=== PATIENT | male | born 1985 | race Caucasian/White ===

== ENCOUNTER 2017-11-26 21:47 | Emergency (ER) | payer MEDICAID ==
[2017-11-26 22:34] VITALS: BP 122/73
[2017-11-26] MEDS ORDERED: LIDOCAINE 5% (700 MG) TRANSDERMAL ADH..PATCH TP ONE (22:55)
[2017-11-26] MEDS ORDERED: KETOROLAC TROMETHAMINE INJ/PF 30 MG/1 ML SDV IM ONE (22:55)
[2017-11-26] MEDS ORDERED: DEXAMETHASONE SOD PHOS INJ 10 MG/1 ML VIAL IM ONE (22:55)
--- NOTE | 2017-11-26 23:00 | ER Document Report ---
HPI - HPI Pain Level: 4 Notes: Patient is a 32-year-old male with history aside from chronic back pain who presents to the ED complaining of ongoing bilateral lower back and mid back pain 3-4 years. Patient is not aware of any initial injury or trauma at that time. Patient states that the pain is primarily to his lower back and radiates up paraspinally towards his mid back. Patient states that truncal movements make his pain worse and laying down improves his pain. Patient states that he has had this pain since then, but has not been in to see any providers. He has never had any imaging done his back. Patient states that he has not had any surgeries or procedures to his back. He denies any IV drug use. He does admit to smoking. He is still eating and drinking without difficulties. He is urinating normally and having normal bowel movements. He has not had any recent illness. Denies any drug allergies. Denies any headache, fever, neck pain, URI, sore throat, chest pain, palpitations, syncope, cough, shortness of breath, wheeze, dyspnea, abdominal pain, nausea/vomiting/diarrhea, urinary retention, dysuria, hematuria, loss of control of bowel or bladder, numbness/ tingling, saddle anesthesia, muscle paralysis/weakness, or rash. - ROS Systems Reviewed and Negative: Yes All other systems reviewed and negative - CONSTITUTIONAL Constitutional: DENIES: Fever, Chills - EENT EENT: DENIES: Sore Throat, Ear Pain, Eye problems - NEURO Neurology: DENIES: Headache, Weakness, Vision blurred, Dizzinesss / Vertigo - CARDIOVASCULAR Cardiovascular: DENIES: Chest pain - RESPIRATORY Respiratory: DENIES: Trouble Breathing, Coughing - GASTROINTESTINAL Gastrointestinal: DENIES: Abdominal Pain, Black / Bloody Stools - URINARY Urinary: DENIES: Dysuria - MUSCULOSKELETAL Musculoskeletal: DENIES: Extremity pain Past Medical History - Social History Smoking Status: Current Every Day Smoker Chew tobacco use (# tins/day): No Frequency of alcohol use: None Drug Abuse: None Family History: Reviewed & Not Pertinent Patient has suicidal ideation: No Patient has homicidal ideation: No Renal/ Medical History: Denies: Hx Peritoneal Dialysis Past Surgical History: Reports: Hx Orthopedic Surgery - rt knee, rt foot Vertical Provider Document - CONSTITUTIONAL Agree With Documented VS: Yes Notes: PHYSICAL EXAMINATION: GENERAL: Well-appearing, well-nourished and in no acute distress. LUNGS: Breath sounds clear to auscultation bilaterally and equal. No wheezes rales or rhonchi. HEART: Regular rate and rhythm without murmurs, rubs, gallops. ABDOMEN: Soft, nontender, nondistended abdomen. No guarding, no rebound. No masses appreciated. Normal bowel sounds present. No CVA tenderness bilaterally. No pulsatile mass Musculoskeletal: LE's b/l: FROM to passive/active. Strength 5+/5. No deficits noted. No bony tenderness of extremities. Back: FROM to passive/active. Strength 5+/5. No vertebral point tenderness, stepoffs, or deformities. No other bony tenderness, erythema, swelling, or ecchymosis. SLR negative b/l. + tenderness to the L/T-paraspinal mm b/l which correlates with the pain described. Mild spasming. No SI jt tenderness. No foot drop Extremities: No cyanosis, clubbing, or edema b/l. Peripheral pulses 2+. Capillary refill less than 2 seconds. NEUROLOGICAL: Normal speech, normal gait. Normal sensory, motor exams. Reflexes 2+ b/l. PSYCH: Normal mood, normal affect. SKIN: Warm, Dry, normal turgor, no rashes or lesions noted. - INFECTION CONTROL TRAVEL OUTSIDE OF THE [place] IN LAST 30 DAYS: No Course - Re-evaluation Re-evalutation: 11/26/17 23:40 Patient is an afebrile, well-hydrated, 32-year-old male who presents to the ED with acute on chronic lower back pain. Vitals are acceptable. PE is otherwise unremarkable. He has no significant tachycardia, tachypnea, or hypoxia. Patient is able to ambulate without difficulties. He has no other red flag symptoms with benign exam findings. Patient has never had any imaging done his back, per patient, so L-spine was ordered at this time. X-ray was unremarkable for any acute pathology. It did not incidentally of a partially calcified splenic cyst. Patient was given Decadron, Toradol, and a Lidoderm patch. I do not feel that other labs or imaging are warranted at this time based on H&P. Patient has had the symptoms overall for the last 3-4 years. Low suspicion for any meningitis, fracture, expanding/ruptured AAA, cauda equina syndrome, epidural mass lesion/abscess, herniated disc causing severe spinal stenosis, or other systemic infection at this time. Patient is aware that his condition can change from initial presentation and that he needs monitor symptoms closely for any acute changes. I will send him home with a prescription for naproxen and baclofen. Conservative measures otherwise for symptoms. Schedule an appointment with orthopedics for further evaluation and management. Consider consult with physical therapy. Recheck with your PCM in 3-5 days as well for the splenic cyst. Return to the ED with any worsening/concerning symptoms otherwise as reviewed discharge. Patient is in agreement. - Vital Signs Vital signs: Temp Pulse Resp BP Pulse Ox 98.3 F 74 122/73 98 11/26/17 22:25 11/26/17 22:25 11/26/17 22:25 11/26/17 22:25 Discharge - Discharge Clinical Impression: Splenic cyst Low back pain Qualifiers: Chronicity: acute Back pain laterality: bilateral Sciatica presence: without sciatica Qualified Code(s): M54.5 - Low back pain Condition: Stable Disposition: HOME, SELF-CARE Instructions: Low Back Pain ([facility]), Muscle Relaxers ([facility]), Stretching Exercises for the Back ([facility]) Additional Instructions: Rest, Ice, Compression, Elevation Tylenol/ibuprofen as needed Light stretches daily Strength exercises as able Moist heat and massage may help F/u with your PCP in 3-5 days for a recheck of the splenic cyst Schedule a consult(s) with Orthopedics/physical therapy for ongoing/worsening symptoms Return to the ED with any worsening symptoms and/or development of fever, headache, chest pain, palpitations, syncope, shortness of breath, trouble breathing, abdominal pain, n/v/d, blood in stool/urine, loss of control of bowel /bladder, urinary retention, muscle weakness/paralysis, saddle anesthesia, numbness/tingling, or other worsening symptoms that are concerning to you. Prescriptions: Baclofen [Baclofen 10 mg Tablet] 5 - 10 mg PO BID PRN #10 tablet PRN Reason: Naproxen 500 mg PO BID PRN #30 tablet PRN Reason: Forms: Smoking Cessation Education Referrals: [facility] [Provider Group] - Follow up in 1 week
--- NOTE | 2017-11-26 23:25 | RADIOLOGY REPORT (SQ) ---
EXAM DESCRIPTION: L SPINE WHOLE COMPLETED DATE/TIME: 11/26/2017 11:15 pm REASON FOR STUDY: low back pain COMPARISON: None. NUMBER OF VIEWS: Five views including obliques. TECHNIQUE: AP, lateral, oblique, and sacral radiographic images acquired of the lumbar spine. LIMITATIONS: None. FINDINGS: MINERALIZATION: Normal. SEGMENTATION: Normal. No transitional anatomy. ALIGNMENT: Normal. VERTEBRAE: Maintained height. No fracture or worrisome bone lesion. DISCS: Preserved height. No significant osteophytes or end plate irregularity. POSTERIOR ELEMENTS: Pedicles and facets are intact. No pars defect or posterior arch defects. HARDWARE: None in the spine. PARASPINAL SOFT TISSUES: Normal. PELVIS: Intact as visualized. No fractures or worrisome bone lesions. SI joints intact. OTHER: Rounded partially calcified lesion projecting within the left upper quadrant likely representi ng a calcified splenic cyst. IMPRESSION: NORMAL 5 VIEW LUMBAR SPINE. Incidental NOTE MADE OF PARTIALLY CALCIFIED SPLENIC CYST. TECHNICAL DOCUMENTATION: JOB ID: [id number] [employer]- All Rights Reserved Reading location - IP/workstation name: [email or web address]
== END 2017-11-26 23:46 | disposition home or self-care (01) ==
LOC: ER 21:47
DX: D73.4 Cyst of spleen (principal); G89.29 Other chronic pain; M54.5 Low back pain; M54.6 Pain in thoracic spine; F17.200 Nicotine dependence, unspecified, uncomplicated
CPT/HCPCS: 99283; 96372; 72110; J1885; J3490; J1100

== ENCOUNTER 2017-11-27 13:51 | Emergency (ER) | payer MEDICAID ==
[2017-11-27 14:06] VITALS: BP 126/77
[2017-11-27] MEDS ORDERED: METHOCARBAMOL 750 MG TABLET PO ONE (14:52)
--- NOTE | 2017-11-27 14:56 | ER Document Report ---
ED General - General Chief Complaint: Low Back Pain Stated Complaint: BACK PAIN, ARM WEAKNESS Time Seen by Provider: 11/27/17 14:39 Notes: 32-year-old male returns to the emergency department after having been seen here yesterday for low back pain and received a shot of Toradol and a shot of steroids. States that since then his back pain has not improved despite using baclofen and when he woke up this morning he felt like his bilateral upper extremities were weak and swollen. States that he dropped a gallon of milk when he woke up this morning. 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 States that he has intermittent tingling in his fingertips that has been going on for several months. States that his back pain has also been going on for months if not years, has never seen anybody for it. Did not have an inciting trauma, has not had any recent trauma either. Denies fevers, chills, numbness or tingling in his legs, bowel or bladder dysfunction, saddle anesthesia. Denies IV drug use or self cathing for urine or urinary retention. Patient also notes that since receiving the steroid shot he has been able to feel his heart pounding in his chest but denies any chest pain. TRAVEL OUTSIDE OF THE [place] IN LAST 30 DAYS: No - Related Data Allergies/Adverse Reactions: No Known Allergies Allergy (Verified 11/27/17 14:44) Past Medical History - General Information source: Patient - Social History Smoking Status: Current Every Day Smoker Chew tobacco use (# tins/day): No Frequency of alcohol use: None Drug Abuse: None, Bath salts Family History: Malignancy - Strong history of cancer in aunts. Patient has suicidal ideation: No Patient has homicidal ideation: No Renal/ Medical History: Denies: Hx Peritoneal Dialysis Past Surgical History: Reports: Hx Orthopedic Surgery - rt knee, rt foot Review of Systems - Review of Systems Constitutional: No symptoms reported. denies: Fever EENT: No symptoms reported Cardiovascular: No symptoms reported Respiratory: No symptoms reported Gastrointestinal: No symptoms reported Musculoskeletal: See HPI - Bilateral upper extremity weakness, tingling to his fingers. Back pain., Back pain Neurological/Psychological: See HPI, Weakness, Tingling. denies: Gait changes, Paralysis, Seizure -: Yes All other systems reviewed and negative Physical Exam - Vital signs Vitals: Temp Pulse Resp BP Pulse Ox 98.5 F 115 H 18 126/77 H 98 11/27/17 14:03 11/27/17 14:03 11/27/17 14:03 11/27/17 14:03 11/27/17 14:03 - Notes Notes: GENERAL: Alert, interacts well. No acute distress. HEAD: Normocephalic, atraumatic EYES: Pupils equal, round and reactive to light, extraocular movements intact. ENT: Oral mucosa moist, tongue midline. NECK: Full range of motion, supple, trachea midline. LUNGS: Clear to auscultation bilaterally, no wheezes, rales or rhonchi, no respiratory distress. HEART: Regular rate and rhythm, no murmurs, gallops, rubs. EXTREMITIES: Moves all 4 extremities spontaneously, no edema, radial and dorsalis pedis pulses 2/4 bilaterally. No cyanosis. 5 out of 5 muscle strength bilateral upper and lower extremities, unable to detect any weakness in the upper extremities. Able to fully resist flexion, extension, internal and external rotation, abduction and adduction. NEUROLOGICAL: Alert and oriented x3, normal speech, biceps and patellar DTRs 2+ bilaterally. BACK: Muscle spasm and tenderness palpation in the lower thoracic region, no midline bony tenderness to palpation, no step-offs or deformities. PSYCH: Normal mood, normal affect. SKIN: Warm, Dry, normal turgor, no rashes or lesions noted. Course - Re-evaluation Re-evalutation: 11/27/17 15:20 No evidence of cauda equina syndrome, no evidence of central cord syndrome, does not have a medical history that would predispose to epidural abscess. Am more suspicious for bilateral carpal tunnel syndrome causing his bilateral upper extremity weakness that he reports but I have not been able to reproduce on exam particularly in the setting of intermittent tingling of his hands bilaterally. 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 Patient notes that he has to switch off hands while he is driving or else he will get numbness while driving the lawnmower. Patient does not have any focal weakness nothing that would suggest stroke, no decrease in sensation that is reproducible on examination, no findings to support transverse myelitis. Patient will be placed in cockup splints bilaterally, changed from baclofen to Robaxin for muscle relaxer and asked to return to the emergency department for any new or concerning symptoms. We are checking an EKG due to his tachycardia and feelings of heart racing. I suspect this is a side effect of the steroids. - Vital Signs Vital signs: Temp Pulse Resp BP Pulse Ox 98.5 F 115 H 18 126/77 H 98 11/27/17 14:03 11/27/17 14:03 11/27/17 14:03 11/27/17 14:03 11/27/17 14:03 - EKG Interpretation by Me Additional EKG results interpreted by me: 11/27/17 15:25 EKG shows sinus rhythm rate 74, normal axis, normal intervals, no ST segment elevations or depressions, no T-wave inversions per my interpretation. Procedures - Immobilization Left Wrist Pre-Proc Neuro Vasc Exam: Normal Immobilizer type: Cock-up Performed by: Other - EMERGENCY MANAGER Post-Proc Neuro Vasc Exam: Normal, Unchanged from pre-exam Alignment checked and good: Yes Right Wrist Pre-Proc Neuro Vasc Exam: Normal Immobilizer type: Cock-up Performed by: Other - EMERGENCY MANAGER Post-Proc Neuro Vasc Exam: Normal, Unchanged from pre-exam Alignment checked and good: Yes Discharge - Discharge Clinical Impression: Upper extremity weakness Chronic thoracic back pain Qualifiers: Back pain laterality: midline Qualified Code(s): M54.6 - Pain in thoracic spine ; G89.29 - Other chronic pain; G89.29 - Other chronic pain Condition: Stable Disposition: HOME, SELF-CARE Additional Instructions: Currently I suspect that the weakness in your bilateral arms is coming from carpal tunnel syndrome. I suggest that you wear the cockup splints while mowing and at night. If the tingling and the weakness worsen please return to the emergency department or follow-up with your primary care physician. If you develop any numbness or tingling in your lower extremities, loss of control your bowels or bladders, focal weakness on one side or the other but not both please return to the emergency department immediately. You may take ibuprofen 800 mg every 8 hours as needed for pain your back, acetaminophen 1000 mg every 6 hours as needed for pain in your back and the Robaxin as directed as a muscle relaxer. Your EKG was actually completely normal. When we checked her heart rate on the EKG of 74 bpm. Prescriptions: Methocarbamol [Robaxin 750 mg Tablet] 750 mg PO ASDIR PRN #40 tablet PRN Reason: Referrals: GRACY FREEMAN MD [ACTIVE STAFF] - Follow up as needed
--- NOTE | 2017-11-27 20:36 | EKG REPORT ---
SEVERITY:- NORMAL ECG - SINUS RHYTHM : Confirmed by: Ines Burch 27-Nov-2017 17:35:23
== END 2017-11-27 15:45 | disposition home or self-care (01) ==
LOC: ER 13:51
DX: M54.6 Pain in thoracic spine (principal); G89.29 Other chronic pain; M62.830 Muscle spasm of back; R20.2 Paresthesia of skin; R00.0 Tachycardia, unspecified; F17.200 Nicotine dependence, unspecified, uncomplicated
CPT/HCPCS: 93005; 99283; 93010; L3908 ×2; J3490

== ENCOUNTER 2018-10-03 14:04 | Emergency (ER) | payer MEDICAID ==
[2018-10-03 14:09] VITALS: BP 137/99
--- NOTE | 2018-10-03 15:45 | ER Document Report ---
ED Medical Screen (RME) - General Chief Complaint: Flank Pain Stated Complaint: LEFT SIDE PAIN Time Seen by Provider: 10/03/18 15:35 Primary Care Provider: GRACY FREEMAN MD [Primary Care Provider] - Follow up as needed Mode of Arrival: Ambulatory Information source: Patient Notes: PT C/O LEFT SIDE FLANK PAIN ALL THE WAY TO UPPER BACK. DENIES INJURY, DENIES HX OF KIDNEY STONES. ALSO REPORTS HE HAS HAD SPORADIC VOMITING THAT WILL LAST ALL DAY. NO N/V/D/F TODAY, JUST FLANK AND BACK PAIN. I have greeted and performed a rapid initial assessment of this patient. A comprehensive ED assessment and evaluation of the patient, analysis of test results and completion of the medical decision making process will be conducted by additional ED providers. TRAVEL OUTSIDE OF THE [place] IN LAST 30 DAYS: No - Related Data Allergies/Adverse Reactions: No Known Allergies Allergy (Verified 10/03/18 14:07) Past Medical History Renal/ Medical History: Denies: Hx Peritoneal Dialysis Past Surgical History: Reports: Hx Orthopedic Surgery - rt knee, rt foot Physical Exam - Vital signs Vitals: Temp Pulse Resp BP Pulse Ox 97.5 F 95 18 137/99 H 98 10/03/18 14:06 10/03/18 14:06 10/03/18 14:06 10/03/18 14:06 10/03/18 14:06 Course - Vital Signs Vital signs: Temp Pulse Resp BP Pulse Ox 97.5 F 95 18 137/99 H 98 10/03/18 14:06 10/03/18 14:06 10/03/18 14:06 10/03/18 14:06 10/03/18 14:06 - Laboratory Result Diagrams: 10/03/18 17:01 10/03/18 17:01 Laboratory results interpreted by me: 10/03/18 10/03/18 15:45 17:01 Calcium 10.5 H Urine Glucose (UA) 50 H Doctor's Discharge - Discharge Referrals: GRACY FREEMAN MD [Primary Care Provider] - Follow up as needed
[2018-10-03 16:15] LABS: APPEARANCE,URINE CLEAR; BILIRUBIN,URINE NEGATIVE (NEGATIVE); COLOR,URINE YELLOW; GLUCOSE, URINE 50 mg/dL (NEGATIVE); KETONES,URINE NEGATIVE (NEGATIVE); LEUKOCYTE ESTERASE,URINE NEGATIVE (NEGATIVE); NITRITE,URINE NEGATIVE (NEGATIVE); PROTEIN,URINE NEGATIVE (NEGATIVE); URINE SPECIFIC GRAVITY 1.016; UROBILINOGEN,URINE NEGATIVE mg/dL (<2.0)
--- NOTE | 2018-10-03 16:27 | RADIOLOGY REPORT (SQ) ---
EXAM DESCRIPTION: KUB/ABDOMEN (SINGLE VIEW) COMPLETED DATE/TIME: 10/03/2018 4:21 pm REASON FOR STUDY: ABDOMIN PAIN COMPARISON: None. NUMBER OF VIEWS: One view. TECHNIQUE: Supine radiographic image of the abdomen acquired. LIMITATIONS: None. FINDINGS: BOWEL GAS PATTERN: Normal bowel gas pattern. No dilated loops. CALCIFICATIONS: 4.5 cm area in the left upper quadrant with peripheral calcification. SOFT TISSUES: No gross mass or suggestion of organomegaly. HARDWARE: None in the abdomen. BONES: No acute fracture. No worrisome bone lesions. OTHER: No other significant finding. IMPRESSION: 4.5 CM CALCIFICATION IN THE LEFT UPPER QUADRANT PROBABLY IN THE SPLEEN. NO RADIOGRAPHIC EVIDENCE FOR ACUTE ABDOMINAL DISEASE. TECHNICAL DOCUMENTATION: JOB ID: [id number] [employer]- All Rights Reserved Reading location - IP/workstation name: [email or web address]
--- NOTE | 2018-10-03 16:28 | RADIOLOGY REPORT (SQ) ---
EXAM DESCRIPTION: RIBS LEFT W/PA CHEST COMPLETED DATE/TIME: 10/03/2018 4:21 pm REASON FOR STUDY: left side flank and upper back pain COMPARISON: None. TECHNIQUE: Frontal and lateral view of the chest and additional views of the left ribs acquired. NUMBER OF VIEWS: Four view. LIMITATIONS: None. FINDINGS: FRONTAL CXR: No pneumothorax. No pleural effusion. No atelectasis or infiltrates. RIBS: No displaced rib fractures. No lytic or blastic bony lesions. OTHER: 4.5 cm peripheral calcification in the left upper quadrant of the abdomen. No other significa nt finding. IMPRESSION: NO PNEUMOTHORAX. NO DISPLACED RIB FRACTURES. 4.5 CM PERIPHERAL CALCIFICATION IN THE LEFT UPPER QUADRANT OF THE ABDOMEN, PROBABLY WITHIN THE SPLEEN . COMMENT: SITE OF TRAUMA/COMPLAINT MARKED/STAMP COMPLETED: YES. TECHNICAL DOCUMENTATION: JOB ID: [id number] [employer]- All Rights Reserved Reading location - IP/workstation name: [email or web address]
[2018-10-03 17:19] LABS: ABSOLUTE BASOPHILS # (AUTO) 0.1 10^3/uL (0.0-0.2); ABSOLUTE EOSINOPHILS # (AUTO) 0.2 10^3/uL (0.0-0.6); ABSOLUTE MONOCYTES (AUTO) 0.8 10^3/uL (0.1-1.4); ABSOLUTE NEUT (AUTO) 6.8 10^3/uL (1.7-8.2); BASOPHILS % (AUTO) 0.8 % (0-2); EOSINOPHILS % (AUTO) 2.5 % (0-6); HEMATOCRIT 46.4 % (37.9-51.0); HEMOGLOBIN 16.4 g/dL (13.5-17.0); LYMPHOCYTES % (AUTO) 20.3 % (13-45); MEAN CORPUSCULAR HEMOGLOBIN 30.6 pg (27.0-33.4); MEAN CORPUSCULAR HGB CONC 35.4 g/dL (32.0-36.0); MEAN CORPUSCULAR VOLUME 87 fl (80-97); MONOCYTES % (AUTO) 8.2 % (3-13); PLATELET COUNT 282 10^3/uL (150-450); RED BLOOD COUNT 5.37 10^6/uL (4.35-5.55); RED CELL DISTRIBUTION WIDTH 13.1 % (11.5-14.0); SEGMENTED NEUTROPHILS % (AUTO) 68.2 % (42-78); TOTAL CELLS COUNTED % (AUTO) 100 %
[2018-10-03 17:36] LABS: ALANINE AMINOTRANSFERASE 33 U/L (21-72); ALBUMIN 4.7 g/dL (3.5-5.0); ALKALINE PHOSPHATASE 78 U/L (38-126); ANION GAP 10 (5-19); ASPARTATE AMINO TRANSFERASE 22 U/L (17-59); BILIRUBIN,DIRECT 0.3 mg/dL (0.0-0.4); BILIRUBIN,TOTAL 0.6 mg/dL (0.2-1.3); BLOOD UREA NITROGEN 10 mg/dL (7-20); CALCIUM 10.5 mg/dL (8.4-10.2); CARBON DIOXIDE 28 mmol/L (22-30); CHLORIDE 102 mmol/L (98-107); GLUCOSE 94 mg/dL (75-110); SODIUM 140.2 mmol/L (137-145); TOTAL PROTEIN 7.7 g/dL (6.3-8.2)
--- NOTE | 2018-10-03 18:14 | ER Document Report ---
ED General - General Chief Complaint: Flank Pain Stated Complaint: LEFT SIDE PAIN Time Seen by Provider: 10/03/18 15:35 Primary Care Provider: GRACY FREEMAN MD [ACTIVE STAFF] - Follow up as needed CONOR BROWNING MD [ACTIVE STAFF] - Follow up as needed Mode of Arrival: Ambulatory Notes: 33-year-old male with no significant past medical history but with a known calcified splenic cyst presents to the emergency department for left flank pain. Patient states it has been steady and unbearable for the last 2 days where he cannot get comfortable. He said he has been having intermittent pain for the last 6 months. No inciting trauma that he is aware of. He states that randomly he will also get severe headaches and vomit without nausea. Unclear if this is related. No history of migraines. He denies any other abdominal pain. He denies any fevers or chills, shortness of breath or chest pain, urinary symptoms, back pain. TRAVEL OUTSIDE OF THE [place] IN LAST 30 DAYS: No - Related Data Allergies/Adverse Reactions: No Known Allergies Allergy (Verified 10/03/18 14:07) Past Medical History - General Information source: Patient - Social History Smoking Status: Unknown if Ever Smoked Family History: Malignancy - Strong history of cancer in aunts. Renal/ Medical History: Denies: Hx Peritoneal Dialysis Past Surgical History: Reports: Hx Orthopedic Surgery - rt knee, rt foot Review of Systems - Review of Systems Constitutional: See HPI EENT: No symptoms reported Cardiovascular: See HPI Respiratory: See HPI Gastrointestinal: See HPI Genitourinary: No symptoms reported Male Genitourinary: No symptoms reported Musculoskeletal: See HPI Skin: No symptoms reported Hematologic/Lymphatic: No symptoms reported Neurological/Psychological: No symptoms reported Physical Exam - Vital signs Vitals: Temp Pulse Resp BP Pulse Ox 97.5 F 95 18 137/99 H 98 10/03/18 14:06 10/03/18 14:06 10/03/18 14:06 10/03/18 14:06 10/03/18 14:06 - Notes Notes: PHYSICAL EXAMINATION: Reviewed vital signs and charting by RN GENERAL: Alert, interacts well. No acute distress. HEAD: Normocephalic, atraumatic. NECK: Full range of motion. Supple. Trachea midline. LUNGS: Clear to auscultation bilaterally, no wheezes, rales, or rhonchi. No respiratory distress. HEART: Regular rate and rhythm. No murmur ABDOMEN: soft, non-tender. Non-distended. Bowel sounds present in all 4 quadrants. no McBurney's point tenderness, no Mariano sign. EXTREMITIES: Moves all 4 extremities spontaneously. No edema, No cyanosis. BACK: Acute left-sided flank pain to light palpation and while at rest NEUROLOGICAL: Normal speech. PSYCH: Normal affect, normal mood. SKIN: Warm, dry, normal turgor. No rashes or lesions noted. Course - Re-evaluation Re-evalutation: 10/03/18 18:35 Overall well-appearing. Patient with a known most likely in his spleen. Discussed with Dr. James De Santiago and will get a CT abdomen with IV contrast. There was no blood or RBCs in urinalysis so I do not suspect a kidney stone with this known abnormality. No leukocytosis, no evidence of infectious symptoms. At this time I want to get the imaging to assess for potential for splenic infarction. 10/03/18 19:51 CT abdomen pelvis with contrast complete. No evidence of any vascular pathology with the spleen. It showed a 3 cm densely calcified splenic cyst. Discussed with Dr. De Santiago and this could potentially just represent stretching of the splenic capsule causing him his pain. I will give him a follow-up with surgery to discuss his options. At this time all his lab work and vital signs are stable he is safe and stable to discharge home. - Vital Signs Vital signs: Temp Pulse Resp BP Pulse Ox 97.5 F 95 18 137/99 H 98 10/03/18 14:06 10/03/18 14:06 10/03/18 14:06 10/03/18 14:06 10/03/18 14:06 - Laboratory Result Diagrams: 10/03/18 17:01 10/03/18 17:01 Laboratory results interpreted by me: 10/03/18 10/03/18 15:45 17:01 Calcium 10.5 H Urine Glucose (UA) 50 H Discharge - Discharge Clinical Impression: Splenic cyst Condition: Good Disposition: HOME, SELF-CARE Additional Instructions: You were seen in the emergency room this evening for left-sided pain which most likely is due to the splenic cyst that is present in your spleen. The CT with contrast did not show anything concerning for an aneurysm of your splenic artery or any concerns for severe injury that would require surgery. All your lab work looked good. At this time I am giving you a referral for surgery and you could discuss with the surgeon if this is something that can be addressed if your symptoms persist. If you develop high fevers, pass out, have severe, intractable left-sided pain that debilitate you, you bloody vomiting or bloody diarrhea please immediately return to the emergency department. Please take Motrin 600 mg every 6 hours with food or milk for pain and inflammation and/or Tylenol 1000 mg every 6 hours for pain. Referrals: GRACY FREEMAN MD [ACTIVE STAFF] - Follow up as needed CONOR BROWNING MD [ACTIVE STAFF] - Follow up as needed
[2018-10-03] MEDS ORDERED: OXYCODONE-ACETAMINOPHEN 5-325 MG TABLET PO ONE (18:49)
--- NOTE | 2018-10-03 19:42 | RADIOLOGY REPORT (SQ) ---
EXAM DESCRIPTION: CT ABD/PELVIS WITH IV ONLY COMPLETED DATE/TIME: 10/03/2018 7:29 pm REASON FOR STUDY: Acute LUQ pain COMPARISON: None. TECHNIQUE: CT scan of the abdomen and pelvis performed using helical scanning technique with dynamic intravenous contrast injection. No oral contrast. Images reviewed with lung, soft tissue, and bone windows. Reconstructed coronal and sagittal MPR images reviewed. Delayed images for evaluation of the urinary system also acquired. All images stored on PACS. All CT scanners at this facility use dose modulation, iterative reconstruction, and/or weight based d osing when appropriate to reduce radiation dose to as low as reasonably achievable (ALARA). [facility]: Dose Right [facility]: CareDose [facility]: Dose Right [facility]: Teradose 4D [facility]: [employer] CONTRAST TYPE AND DOSE: contrast/concentration: Isovue 350.00 mg/ml; Total Contrast Delivered: 100.0 ml; Total Saline Delivered: 72.0 ml RENAL FUNCTION: BUN 10 creatinine 0.8 RADIATION DOSE: CT Rad equipment meets quality standard of care and radiation dose reduction techniq ues were employed. CTDIvol: 16.7 - 19.5 mGy. DLP: 2055 mGy-cm.. LIMITATIONS: None. FINDINGS: LOWER CHEST: No significant findings. No nodules or infiltrates. LIVER: Normal size. No masses. No dilated ducts. SPLEEN: There is a 3 cm cyst with densely calcified wall. PANCREAS: No masses. No significant calcifications. No adjacent inflammation or peripancreatic fluid collections. Pancreatic duct not dilated. GALLBLADDER: Contracted. No stones. ADRENAL GLANDS: No significant masses or asymmetry. RIGHT KIDNEY AND URETER: No solid masses. No significant calcifications. No hydronephrosis or hyd roureter. LEFT KIDNEY AND URETER: No solid masses. No significant calcifications. No hydronephrosis or hydr oureter. AORTA AND VESSELS: No aneurysm. No dissection. Renal arteries, SMA, celiac without stenosis. RETROPERITONEUM: No retroperitoneal adenopathy, hemorrhage or masses. BOWEL AND PERITONEAL CAVITY: No masses or inflammatory changes. No free fluid or peritoneal masses. APPENDIX: Normal. PELVIS: No mass. No free fluid. Normal bladder. ABDOMINAL WALL: No masses. No hernias. BONES: No significant or acute findings. OTHER: No other significant finding. IMPRESSION: Calcified splenic cyst. Nonspecific. Could represent an old hemorrhagic cyst. Can be seen with parasites. No acute finding in the abdomen or pelvis. TECHNICAL DOCUMENTATION: JOB ID: [id number] Quality ID # [id number]: Final reports with documentation of one or more dose reduction techniques (e.g., Au tomated exposure control, adjustment of the mA and/or kV according to patient size, use of iterative reconstruction technique) 2010 [employer]- All Rights Reserved Reading location - IP/workstation name: [email or web address]
--- NOTE | 2018-10-03 20:23 | ER Document Report ---
Doctor's Note Notes: I personally and independently obtained patient history and examined the patient in conjunction with the APC and agree with the assessment, treatment plan and disposition of the patient as recorded by the APC, and have reviewed the APC's note. HISTORY OF PRESENT ILLNESS: Patient is a 33 year old male that presents to the emergency department for chief complaint of left flank pain. Patient's been having this pain on and off for over 6 months but it seemingly got worse over the last several days, the pain radiates up the back. Currently rates the pain as a 5 out of 10. ROS: Constitutional: Negative for fever. Cardiovascular: Negative for chest pain. Respiratory: Negative for shortness of breath. Gastrointestinal: Positive for left flank pain Musculoskeletal: Negative for arm, leg or back pain Skin: Negative for rash. Neurological: Negative for weakness or numbness. Other than noted above, the 12 point review of systems was reviewed with the patient and were negative, all pertinent findings are included in the HPI. PHYSICAL EXAMINATION: Vital signs reviewed, nursing noted reviewed. GENERAL: Well-appearing, well-nourished and in no acute distress. HEAD: Atraumatic, normocephalic. EYES: Eyes appear normal, conjunctiva are normal. ENT: nares patent, oropharynx clear without exudates. Moist mucous membranes. NECK: Normal range of motion, supple without lymphadenopathy LUNGS: Breath sounds clear to auscultation bilaterally and equal. No wheezes rales or rhonchi. HEART: Regular rate and rhythm without murmurs ABDOMEN: Soft, left CVA tenderness, normoactive bowel sounds. No rebound, guarding, or rigidity. No masses appreciated. EXTREMITIES: Nontender, good range of motion, no pitting or edema. NEUROLOGICAL: No focal neurological deficits. Moves all extremities spontaneously Motor and sensory grossly intact on exam. PSYCH: Normal mood, normal affect. SKIN: Warm, Dry, normal turgor, no rashes or lesions noted on exposed skin MEDICAL DECISION MAKING: Patient seen and examined, vital signs reviewed, on my examination the patient did have some tenderness in his right flank, review of imaging demonstrated some calcifications in the left upper quadrant, likely splenic cyst, these were seen on prior images in the past, however this may likely be related to the patient's pain, therefore CT imaging of the abdomen and pelvis was ordered with IV contrast, and redemonstrated a 3 cm well-circumscribed and calcified splenic cyst, that is likely the cause the patient's pain as it does abut the splenic capsule, while the patient follow-up with general surgery, to discuss possible options including splenectomy in the future if this continues to cause the patient pain, patient was agreeable to this and was discharged home. Please review detail APC documentation. *Note is created using voice recognition software and may contain spelling, syntax or grammatical errors. Laboratory 10/03/18 10/03/18 10/03/18 15:45 17:01 17:01 WBC 10.0 RBC 5.37 Hgb 16.4 Hct 46.4 MCV 87 MCH 30.6 MCHC 35.4 RDW 13.1 Plt Count 282 Seg Neutrophils % 68.2 Lymphocytes % 20.3 Monocytes % 8.2 Eosinophils % 2.5 Basophils % 0.8 Absolute Neutrophils 6.8 Absolute Lymphocytes 2.0 Absolute Monocytes 0.8 Absolute Eosinophils 0.2 Absolute Basophils 0.1 Sodium 140.2 Potassium 5.0 Chloride 102 Carbon Dioxide 28 Anion Gap 10 BUN 10 Creatinine 0.79 Est GFR ( Amer) > 60 Est GFR (Non-Af Amer) > 60 Glucose 94 Calcium 10.5 H Total Bilirubin 0.6 Direct Bilirubin 0.3 Neonat Total Bilirubin Not Reportable Neonat Direct Bilirubin Not Reportable Neonat Indirect Bili Not Reportable AST 22 ALT 33 Alkaline Phosphatase 78 Total Protein 7.7 Albumin 4.7 Urine Color YELLOW Urine Appearance CLEAR Urine pH 6.0 Ur Specific Condon 1.016 Urine Protein NEGATIVE Urine Glucose (UA) 50 H Urine Ketones NEGATIVE Urine Blood NEGATIVE Urine Nitrite NEGATIVE Urine Bilirubin NEGATIVE Urine Urobilinogen NEGATIVE Ur Leukocyte Esterase NEGATIVE Urine WBC (Auto) 1 Urine RBC (Auto) 1 Urine Mucus (Auto) MOD Urine Ascorbic Acid NEGATIVE KUB X-Ray 10/03/18 00:00 IMPRESSION: 4.5 CM CALCIFICATION IN THE LEFT UPPER QUADRANT PROBABLY IN THE SPLEEN. NO RADIOGRAPHIC EVIDENCE FOR ACUTE ABDOMINAL DISEASE. Ribs w/Chest X-Ray 10/03/18 15:40 IMPRESSION: NO PNEUMOTHORAX. NO DISPLACED RIB FRACTURES. 4.5 CM PERIPHERAL CALCIFICATION IN THE LEFT UPPER QUADRANT OF THE ABDOMEN, PROBABLY WITHIN THE SPLEEN. Abdomen/Pelvis CT 10/03/18 18:36 IMPRESSION: Calcified splenic cyst. Nonspecific. Could represent an old hemor rhagic cyst. Can be seen with parasites. No acute finding in the abdomen or pelvis.
== END 2018-10-03 20:28 | disposition home or self-care (01) ==
LOC: ER 14:04
DX: D73.4 Cyst of spleen (principal); R10.9 Unspecified abdominal pain; R51 Headache; R11.10 Vomiting, unspecified
CPT/HCPCS: 36415; 74018; 74177; 80053; 81001; 85025; 99284

== ENCOUNTER 2019-08-22 14:55 | Emergency (ER) | payer SELFPAY ==
[2019-08-22] MEDS ORDERED: IPRATROPIUM/ALBUTEROL 0.5-2.5 MG/3 ML AMPUL NEB ONE (15:45)
[2019-08-22] MEDS ORDERED: PREDNISONE 20 MG TABLET PO ONE (15:45)
--- NOTE | 2019-08-22 15:47 | ER Document Report ---
ED Medical Screen (RME) - General Chief Complaint: Chest Pain Stated Complaint: SHORT OF BREATH Time Seen by Provider: 08/22/19 15:41 Mode of Arrival: Ambulatory Information source: Patient Notes: Patient states that he was diagnosed with influenza and pneumonia 2 weeks ago. Patient was placed on azithromycin and finished the medicine about a week ago. Patient complains of right thoracic back pain and shortness of breath. Patient without any chest discomfort. No fever, no nausea or vomiting. Patient feels as though symptoms are worsening I have greeted and performed a rapid initial assessment of this patient. A comprehensive ED assessment and evaluation of the patient, analysis of test results and completion of the medical decision making process will be conducted by additional ED providers. TRAVEL OUTSIDE OF THE [place] IN LAST 30 DAYS: No - Related Data Allergies/Adverse Reactions: No Known Allergies Allergy (Verified 10/03/18 14:07) Past Medical History Renal/ Medical History: Denies: Hx Peritoneal Dialysis Past Surgical History: Reports: Hx Orthopedic Surgery - rt knee, rt foot Physical Exam - Vital signs Vitals: Temp Pulse Resp BP Pulse Ox 98.7 F 93 20 127/79 H 96 08/22/19 15:24 08/22/19 15:24 08/22/19 15:24 08/22/19 15:24 08/22/19 15:24 - Respiratory Respiratory status: No respiratory distress Chest status: Pain on movement, Pain with cough Breath sounds: Nonproductive cough, Wheezing - With coughing Course - Vital Signs Vital signs: Temp Pulse Resp BP Pulse Ox 98.7 F 93 20 127/79 H 96 08/22/19 15:24 08/22/19 15:24 08/22/19 15:24 08/22/19 15:24 08/22/19 15:24
--- NOTE | 2019-08-22 17:04 | RADIOLOGY REPORT (SQ) ---
EXAM DESCRIPTION: CHEST 2 VIEWS COMPLETED DATE/TIME: 08/22/2019 4:04 pm REASON FOR STUDY: cough, sob COMPARISON: None. EXAM PARAMETERS: NUMBER OF VIEWS: two views TECHNIQUE: Digital Frontal and Lateral radiographic views of the chest acquired. RADIATION DOSE: NA LIMITATIONS: none FINDINGS: LUNGS AND PLEURA: There appear to be mild bibasilar atelectatic changes. No infiltrate or effusion. No mass. MEDIASTINUM AND HILAR STRUCTURES: No masses or contour abnormalities. HEART AND VASCULAR STRUCTURES: Heart normal size. No evidence for failure. BONES: No acute findings. HARDWARE: None in the chest. OTHER: No other significant finding. IMPRESSION: NO ACUTE RADIOGRAPHIC FINDING IN THE CHEST. TECHNICAL DOCUMENTATION: JOB ID: [id number] 2010 [employer]- All Rights Reserved Reading location - IP/workstation name: [email or web address]
--- NOTE | 2019-08-22 17:25 | ER Document Report ---
ED General - General Chief Complaint: Chest Pain Stated Complaint: SHORT OF BREATH Time Seen by Provider: 08/22/19 15:41 Primary Care Provider: ZAKI MOTLEY DO [NO LOCAL MD] - Follow up as needed ROSS ABREU MD [HONORARY] - Follow up as needed Mode of Arrival: Ambulatory Information source: Patient TRAVEL OUTSIDE OF THE [place] IN LAST 30 DAYS: No - HPI Onset: Other - over the last week Onset/Duration: Gradual Quality of pain: Sharp, Other - pleuritic Severity: Moderate Pain Level: 4 Associated symptoms: Nonproductive cough Exacerbated by: Coughing, Deep breathing, Other - palpation of right lateral and right posterior chest Similar symptoms previously: No Recently seen / treated by doctor: Yes - Seen at a hospital in [place] 2 weeks ago and diagnosed w flu and Pneumonia Notes: 34 year old male with no significant PMH here for 1 week of Right Lateral and Right Posterior Chest/Thorax pain which is made worse with taking deep breaths, coughing, and palpation of the area. 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 Patient said he had a Flu swab and a CTA of his chest then. The patient finished a course of Azithromycin last week and since finishing the Azithromycin he has since developed the right sided chest/thorax pains. The patient says he had had fevers and a productive cough but those have improved since taking Azithromycin. - Related Data Allergies/Adverse Reactions: No Known Allergies Allergy (Verified 10/03/18 14:07) Past Medical History - General Information source: Patient - Social History Smoking Status: Current Every Day Smoker Frequency of alcohol use: None Drug Abuse: None Lives with: Spouse/Significant other Family History: Malignancy - Strong history of cancer in aunts. Patient has suicidal ideation: No Patient has homicidal ideation: No - Past Medical History Cardiac Medical History: Reports: None Pulmonary Medical History: Reports: None EENT Medical History: Reports: None Neurological Medical History: Reports: None Endocrine Medical History: Reports: None Renal/ Medical History: Reports: None. Denies: Hx Peritoneal Dialysis Malignancy Medical History: Reports None GI Medical History: Reports: None Musculoskeletal Medical History: Reports None Skin Medical History: Reports None Psychiatric Medical History: Reports: None Past Surgical History: Reports: Hx Orthopedic Surgery - rt knee, rt foot Review of Systems - Review of Systems Constitutional: No symptoms reported EENT: No symptoms reported Cardiovascular: Chest pain - right sided lateral and posterior chest pain Respiratory: Cough, Other - pleuritic chest pain Gastrointestinal: No symptoms reported Genitourinary: No symptoms reported Male Genitourinary: No symptoms reported Musculoskeletal: No symptoms reported Skin: No symptoms reported Hematologic/Lymphatic: No symptoms reported Neurological/Psychological: No symptoms reported -: Yes All other systems reviewed and negative Physical Exam - Vital signs Vitals: Temp Pulse Resp BP Pulse Ox 98.7 F 93 20 127/79 H 96 08/22/19 15:24 08/22/19 15:24 08/22/19 15:24 08/22/19 15:24 08/22/19 15:24 - Notes Notes: GENERAL: Well-appearing, well-nourished and in no acute distress. HEAD: Atraumatic, normocephalic. EYES: Pupils equal round and reactive to light, extraocular movements intact, sclera anicteric, conjunctiva are normal. ENT: TMs normal, nares patent, oropharynx clear without exudates. Moist mucous membranes. NECK: Normal range of motion, supple without lymphadenopathy or JVD. LUNGS: Breath sounds clear to auscultation bilaterally and equal. No wheezes rales or rhonchi. HEART: Regular rate and rhythm without murmurs, rubs or gallops. CHEST: Tender over right lateral and right posterior chest wall on palpation with no crepitus ABDOMEN: Soft, nontender, normoactive bowel sounds. No guarding, no rebound. No masses appreciated. EXTREMITIES: Normal range of motion, no pitting or edema. No clubbing or cyanosis. NEUROLOGICAL: Cranial nerves II through XII grossly intact. Normal speech, normal gait. PSYCH: Normal mood, normal affect. SKIN: Warm, Dry, normal turgor, no rashes or lesions noted. Course - Re-evaluation Re-evalutation: 08/22/19 20:26 The patient has a consolidation in his right lower lung seen on CTA chest but not on Xray. Patient has no PE on CTA Chest. Patient has finished a course of Azithromycin already. Patient has normal vital signs, a normal WBC count, and he is walking around tolerating POs without a problem. Patient either has a resistant community acquired pneumonia or he is has continued inflammatory changes since his last infection (bacterial vs viral as he apparently tested positve for the flu 2 weeks ago). Since patient is having pain in the area of consolidation and a continued cough, will treat with a course of Levaquin but have him follow up with a PCP locally to ensure resolution of his symptoms and consolidation. - Vital Signs Vital signs: Temp Pulse Resp BP Pulse Ox 97.6 F 90 16 122/78 95 08/22/19 20:45 08/22/19 20:45 08/22/19 20:45 08/22/19 20:45 08/22/19 20:45 - Laboratory Result Diagrams: 08/22/19 17:35 08/22/19 17:35 - Diagnostic Test Radiology reviewed: Image reviewed, Reports reviewed - EKG Interpretation by Tx EKG shows normal: Sinus rhythm, [place], Intervals, QRS Complexes Rate: Normal Rhythm: NSR Additional EKG results interpreted by me: 08/22/19 18:31 T wave inversions in III, aVF. Possible LVH Discharge - Discharge Clinical Impression: Pneumonia Qualifiers: Pneumonia type: due to unspecified organism Laterality: right Lung location: lower lobe of lung Qualified Code(s): J18.9 - Pneumonia, unspecified organism Condition: Stable Disposition: HOME, SELF-CARE Instructions: Pneumonia (OM) Additional Instructions: Take Levaquin (antibiotic) as prescribed. Use an Albuterol inhaler to help with breathing. Use the prescribed Naproxen for pain along with over the counter Tylenol. Follow up with one of the primary care doctors listed in your paperwork to ensure resolution of your symptoms. Prescriptions: Levofloxacin [Levaquin 750 mg Tablet] 750 mg PO DAILY #5 tablet Naproxen 500 mg PO Q12H PRN #20 tablet PRN Reason: Albuterol Sulfate [Proair HFA Inhalation Aerosol 8.5 gm MDI] 2 puff IH Q4H PRN #1 mdi PRN Reason: Referrals: ZAKI MOTLEY DO [NO LOCAL MD] - Follow up as needed ROSS ABREU MD [HONORARY] - Follow up as needed
[2019-08-22] MEDS ORDERED: KETOROLAC TROMETHAMINE INJ/PF 30 MG/1 ML SDV IV ONE (17:47)
[2019-08-22 18:11] LABS: ABSOLUTE BASOPHILS # (AUTO) 0.1 10^3/uL (0.0-0.2); ABSOLUTE EOSINOPHILS # (AUTO) 0.4 10^3/uL (0.0-0.6); ABSOLUTE MONOCYTES (AUTO) 0.9 10^3/uL (0.1-1.4); ABSOLUTE NEUT (AUTO) 4.7 10^3/uL (1.7-8.2); BASOPHILS % (AUTO) 0.9 % (0-2); EOSINOPHILS % (AUTO) 3.9 % (0-6); HEMATOCRIT 38.2 % (37.9-51.0); HEMOGLOBIN 13.5 g/dL (13.5-17.0); MEAN CORPUSCULAR HEMOGLOBIN 30.8 pg (27.0-33.4); MEAN CORPUSCULAR HGB CONC 35.3 g/dL (32.0-36.0); MEAN CORPUSCULAR VOLUME 87 fl (80-97); MONOCYTES % (AUTO) 10.3 % (3-13); PLATELET COUNT 388 10^3/uL (150-450); RED BLOOD COUNT 4.38 10^6/uL (4.35-5.55); SEGMENTED NEUTROPHILS % (AUTO) 51.9 % (42-78); TOTAL CELLS COUNTED % (AUTO) 100 %; WHITE BLOOD COUNT 9.1 10^3/uL (4.0-10.5)
[2019-08-22 18:24] LABS: ALBUMIN 3.9 g/dL (3.5-5.0); ALKALINE PHOSPHATASE 92 U/L (38-126); ANION GAP 9 (5-19); ASPARTATE AMINO TRANSFERASE 33 U/L (17-59); BILIRUBIN,DIRECT 0.3 mg/dL (0.0-0.4); BILIRUBIN,TOTAL 0.5 mg/dL (0.2-1.3); BLOOD UREA NITROGEN 12 mg/dL (7-20); CALCIUM 8.9 mg/dL (8.4-10.2); CARBON DIOXIDE 28 mmol/L (22-30); CHLORIDE 102 mmol/L (98-107); GLUCOSE 85 mg/dL (75-110); POTASSIUM 4.1 mmol/L (3.6-5.0); TOTAL PROTEIN 7.2 g/dL (6.3-8.2)
[2019-08-22 18:35] LABS: NT PRO BNP 52 pg/mL (<125)
[2019-08-22 18:39] LABS: TROPONIN I < 0.012 ng/mL
--- NOTE | 2019-08-22 19:29 | RADIOLOGY REPORT (SQ) ---
EXAM DESCRIPTION: CTA CHEST COMPLETED DATE/TIME: 08/22/2019 7:05 pm REASON FOR STUDY: rule out PE. right sided pleuritic chest pain, SOB COMPARISON: None. TECHNIQUE: CT scan of the chest performed using helical scanning technique with dynamic intravenous contrast injection. Images reviewed with lung, soft tissue and bone windows. Reconstructed coronal and sagittal MPR images reviewed. Additional 3 dimensional post-processing performed to develop Maximal Intensity Projection images (SC P). All images stored on PACS. All CT scanners at this facility use dose modulation, iterative reconstruction, and/or weight based d osing when appropriate to reduce radiation dose to as low as reasonably achievable (ALARA). [facility]: Dose Right [facility]: CareDose [facility]: Dose Right [facility]: Teradose 4D [facility]: [employer] CONTRAST TYPE AND DOSE: contrast/concentration: Isovue 350.00 mg/ml; Total Contrast Delivered: 71.0 ml; Total Saline Delivered: 80.0 ml Contrast bolus adequate for pulmonary arteries and aorta. RENAL FUNCTION: None required. The patient is less than 50 years old. RADIATION DOSE: CT Rad equipment meets quality standard of care and radiation dose reduction techniq ues were employed. CTDIvol: 14.9 - 31.2 mGy. DLP: 1199 mGy-cm. . LIMITATIONS: None. FINDINGS: LUNGS AND PLEURA: Extensive opacity at the right lung base consistent with pneumonia. No effusions. No min pneumothorax. AORTA AND GREAT VESSELS: No aneurysm. Contrast bolus not optimized for the aorta. HEART: No pericardial effusion. No significant coronary artery calcifications. PULMONARY ARTERIES: No emboli visualized in the main pulmonary arteries or the segmental branches. HILAR AND MEDIASTINAL STRUCTURES: No identified masses or abnormal nodes. HARDWARE: None in the chest. UPPER ABDOMEN: 4 cm mass in the spleen with dense rim calcification. Hounsfield units less than 20. THYROID AND OTHER SOFT TISSUES: No masses. No adenopathy. BONES: No acute or significant finding. 3D MIPS: Confirm above findings. OTHER: No other significant finding. IMPRESSION: Extensive right lower lobe pneumonia. No pulmonary emboli. Densely calcified 4 cm splenic cyst. COMMENT: Quality ID # [id number]: Final reports with documentation of one or more dose reduction techniques (e.g., Automated exposure control, adjustment of the mA and/or kV according to patient size, use of iterative reconstruction technique) TECHNICAL DOCUMENTATION: JOB ID: [id number] 2010 [facility]- All Rights Reserved Reading location - IP/workstation name: [email or web address]
[2019-08-22] MEDS ORDERED: LEVOFLOXACIN 750 MG TABLET PO ONE (20:42)
[2019-08-22 20:47] VITALS: BP 122/78
--- NOTE | 2019-08-22 22:19 | EKG REPORT ---
SEVERITY:- ABNORMAL ECG - SINUS RHYTHM PROBABLE LEFT VENTRICULAR HYPERTROPHY INFERIOR INFARCT, AGE INDETERMINATE BORDERLINE ST ELEVATION, LATERAL LEADS : Confirmed by: Rohith Leal MD 22-Aug-2019 22:19:01
== END 2019-08-22 21:43 | disposition home or self-care (01) ==
LOC: ER 14:55
DX: J18.9 Pneumonia, unspecified organism (principal); R07.81 Pleurodynia; R05 Cough; F17.200 Nicotine dependence, unspecified, uncomplicated
CPT/HCPCS: 93005; 36415; 85025; 80053; 84484; 83880; 71046; 71275; 93010; J1885; J7512; J7620; 94640; 96374; 99285

== ENCOUNTER 2019-08-25 11:10 | Inpatient (IN) | payer SELFPAY ==
--- NOTE | 2019-08-25 11:36 | ER Document Report ---
ED Medical Screen (RME) - General Chief Complaint: Shortness Of Breath Stated Complaint: SHORTNESS OF BREATH Time Seen by Provider: 08/25/19 11:30 Mode of Arrival: Wheelchair Information source: Patient Notes: 34-year-old male presented to ED for continued and increasing pain in the right lower chest upper abdomen. He was seen here several days ago and was diagnosed with extensive right lower lobe pneumonia and left splenic calcified cyst. He has no pain on the left of his pain is on the right. He states he was discharged home and is back today because of the increase in pain. Pulse is 100 blood pressure is 102/68 respirations 28 temp 97.9 O2 sat 97%. We will get blood and chest x-ray and have him seen by another provider. Lung sounds are diminished on the right lower lung. He states his pain at this time is a 4/5. Patient is alert oriented respirations are regular nonlabored. Was started on and states the pain and shortness of breath is getting worse. He does smoke ladarius f pack a day. I have greeted and performed a rapid initial assessment of this patient. A comprehensive ED assessment and evaluation of the patient, analysis of test results and completion of medical decision making process will be conducted by an additional ED providers. TRAVEL OUTSIDE OF THE [place] IN LAST 30 DAYS: No - Related Data Allergies/Adverse Reactions: No Known Allergies Allergy (Verified 10/03/18 14:07) Past Medical History Renal/ Medical History: Denies: Hx Peritoneal Dialysis Past Surgical History: Reports: Hx Orthopedic Surgery - rt knee, rt foot Physical Exam - Vital signs Vitals: Temp Pulse Resp BP Pulse Ox 97.9 F 100 28 H 102/68 97 08/25/19 11:14 08/25/19 11:14 08/25/19 11:14 08/25/19 11:14 08/25/19 11:14 Course - Vital Signs Vital signs: Temp Pulse Resp BP Pulse Ox 97.9 F 100 28 H 102/68 97 08/25/19 11:14 08/25/19 11:14 08/25/19 11:14 08/25/19 11:14 08/25/19 11:14
[2019-08-25 12:29] LABS: ABSOLUTE BASOPHILS # (AUTO) 0.1 10^3/uL (0.0-0.2); ABSOLUTE EOSINOPHILS # (AUTO) 0.3 10^3/uL (0.0-0.6); ABSOLUTE NEUT (AUTO) 13.6 10^3/uL (1.7-8.2); BASOPHILS % (AUTO) 0.6 % (0-2); EOSINOPHILS % (AUTO) 1.9 % (0-6); HEMATOCRIT 38.6 % (37.9-51.0); HEMOGLOBIN 13.8 g/dL (13.5-17.0); LYMPHOCYTES % (AUTO) 6.5 % (13-45); MEAN CORPUSCULAR HEMOGLOBIN 31.2 pg (27.0-33.4); MEAN CORPUSCULAR HGB CONC 35.7 g/dL (32.0-36.0); MEAN CORPUSCULAR VOLUME 87 fl (80-97); MONOCYTES % (AUTO) 6.3 % (3-13); PLATELET COUNT 347 10^3/uL (150-450); RED BLOOD COUNT 4.42 10^6/uL (4.35-5.55); RED CELL DISTRIBUTION WIDTH 12.9 % (11.5-14.0); SEGMENTED NEUTROPHILS % (AUTO) 84.7 % (42-78); TOTAL CELLS COUNTED % (AUTO) 100 %; WHITE BLOOD COUNT 16.1 10^3/uL (4.0-10.5)
[2019-08-25 12:40] LABS: APPEARANCE,URINE SLIGHTLY-CLOUDY; BILIRUBIN,URINE SMALL (NEGATIVE); COLOR,URINE AMBER; GLUCOSE, URINE NEGATIVE (NEGATIVE); KETONES,URINE NEGATIVE (NEGATIVE); PROTEIN,URINE 30 mg/dL (NEGATIVE); URINE SPECIFIC GRAVITY 1.035
[2019-08-25 12:45] LABS: ALBUMIN 3.7 g/dL (3.5-5.0); ALKALINE PHOSPHATASE 85 U/L (38-126); ANION GAP 5 (5-19); ASPARTATE AMINO TRANSFERASE 23 U/L (17-59); BILIRUBIN,TOTAL 0.6 mg/dL (0.2-1.3); BLOOD UREA NITROGEN 16 mg/dL (7-20); CALCIUM 9.3 mg/dL (8.4-10.2); CARBON DIOXIDE 28 mmol/L (22-30); CHLORIDE 103 mmol/L (98-107); GLUCOSE 97 mg/dL (75-110); POTASSIUM 4.3 mmol/L (3.6-5.0); TOTAL PROTEIN 6.5 g/dL (6.3-8.2)
[2019-08-25] MEDS ORDERED: MORPHINE SULFATE 10 MG/ML INJ IV ONE (13:15)
[2019-08-25] MEDS ORDERED: ONDANSETRON HCL INJ/PF 4 MG/2 ML SDV IV ONE (13:15)
--- NOTE | 2019-08-25 13:19 | ER Document Report ---
ED General - General Chief Complaint: Breathing Difficulty Stated Complaint: SHORTNESS OF BREATH Time Seen by Provider: 08/25/19 11:30 Mode of Arrival: Wheelchair Notes: Patient is a 34-year-old white male with no reported chronic past medical history who presents to the emergency department today for ongoing complaints of right-sided chest pain. Patient states he was seen here 3 days ago and diagnosed with a severe right lower lobe pneumonia. He was placed on Levaquin and albuterol at that time. He states has been taking his medications without any improvement of his symptoms. He states he feels his condition is actually worsening. States the pain has progressed and is now involving most of the right chest wall originating in the right lower chest wall radiating up to the right anterior chest. Admits to ongoing difficulty breathing. Of note he was on Zithromax for a week prior to initiation of Levaquin for the same condition. He was seen at a facility in another state, diagnosed with pneumonia at that time and then followed up here with no improvement after the Zithromax. He has been on Levaquin 3 days reports declining. He denies any known fevers or night sweats. Admits to some chills. Denies nausea vomiting or diarrhea. No hemoptysis. He is a current everyday smoker TRAVEL OUTSIDE OF THE [place] IN LAST 30 DAYS: No - Related Data Allergies/Adverse Reactions: No Known Allergies Allergy (Verified 10/03/18 14:07) Home Medications: Aleve daily Past Medical History - General Information source: Patient - Social History Smoking Status: Current Every Day Smoker Frequency of alcohol use: None Drug Abuse: None Family History: Malignancy - Strong history of cancer in aunts. Patient has suicidal ideation: No Patient has homicidal ideation: No Renal/ Medical History: Denies: Hx Peritoneal Dialysis Past Surgical History: Reports: Hx Orthopedic Surgery - rt knee, rt foot Review of Systems - Review of Systems Constitutional: Chills Respiratory: Cough, Hurts to breathe, Short of breath -: Yes All other systems reviewed and negative Physical Exam - Vital signs Vitals: Temp Pulse Resp BP Pulse Ox 97.9 F 100 28 H 102/68 97 08/25/19 11:14 08/25/19 11:14 08/25/19 11:14 08/25/19 11:14 08/25/19 11:14 - General General appearance: Alert, Other - Appears uncomfortable In distress: Mild Notes: Nontoxic - HEENT Head: Normocephalic, Atraumatic Eyes: Normal Conjunctiva: Normal Extraocular movements intact: Yes Eyelashes: Normal Pupils: PERRL Ears: Normal External canal: Normal Tympanic membrane: Normal Sinus: Normal Nasal: Normal Mouth/Lips: Normal Mucous membranes: Normal Pharynx: Normal Neck: Normal - Respiratory Respiratory status: No respiratory distress Chest status: Tender - Diffusely tender to light touch about the right chest wall Breath sounds: Other - Splinting, decreased breath sounds on the right Chest palpation: Tender - Cardiovascular Rhythm: Regular Heart sounds: Normal auscultation - Extremities General upper extremity: Normal inspection, Nontender, Normal color, Normal ROM, Normal temperature General lower extremity: Normal inspection, Nontender, Normal color, Normal ROM, Normal temperature, Normal weight bearing. No: Donald's sign - Neurological Neuro grossly intact: Yes Cognition: Normal Orientation: AAOx4 Balbir Coma Scale Eye Opening: Spontaneous Balbir Coma Scale Verbal: Oriented Balbir Coma Scale Motor: Obeys Commands Swatara Coma Scale Total: 15 Speech: Normal - Psychological Associated symptoms: Normal affect, Normal mood - Skin Skin Temperature: Warm Skin Moisture: Dry Skin Color: Normal Course - Re-evaluation Re-evalutation: 08/25/19 15:12 EKG: Interpreted by ED attending at 1343 as no STEMI, sinus rhythm at 88 bpm, normal intervals. 08/25/19 15:14 Was reported to me at this time that with the patient off oxygen at rest his O2 saturations are dropping to the low 90s. At one point with exertion they report his O2 sat recording at 87% on room air. Status post VBG will place on 2 L of oxygen via nasal cannula. Plan still for admission. 08/25/19 15:[address] Berger, hospitalist at this time. He will evaluate the patient for admission in the emergency department. Patient is stable for admission at this time. Oxygen saturations good on 2 L via nasal cannula. - Vital Signs Vital signs: Temp Pulse Resp BP Pulse Ox 99.2 F 100 31 H 102/68 96 08/25/19 14:09 08/25/19 11:14 08/25/19 15:00 08/25/19 11:14 08/25/19 15:00 - Laboratory Result Diagrams: 08/25/19 12:01 08/25/19 12:01 Laboratory results interpreted by me: 08/25/19 08/25/19 08/25/19 12:01 12:01 12:01 WBC 16.1 H Lymph % (Auto) 6.5 L Absolute Neuts (auto) 13.6 H Seg Neutrophils % 84.7 H Sodium 136.3 L NT-Pro-B Natriuret Pep Urine Protein 30 H Urine Bilirubin SMALL H Urine Urobilinogen 2.0 H 08/25/19 12:01 WBC Lymph % (Auto) Absolute Neuts (auto) Seg Neutrophils % Sodium NT-Pro-B Natriuret Pep 150 H Urine Protein Urine Bilirubin Urine Urobilinogen Discharge - Discharge Clinical Impression: Hypoxia, Failure of outpatient treatment Pneumonia Qualifiers: Pneumonia type: due to unspecified organism Laterality: right Lung location: lower lobe of lung Qualified Code(s): J18.9 - Pneumonia, unspecified organism Condition: Stable Disposition: ADMITTED INPATIENT Admitting Provider: Nhung (Hospitalist) Unit Admitted: Telemetry
--- NOTE | 2019-08-25 13:48 | RADIOLOGY REPORT (SQ) ---
EXAM DESCRIPTION: CHEST 2 VIEWS COMPLETED DATE/TIME: 08/25/2019 11:51 am REASON FOR STUDY: Right-sided chest upper abdomen pain history pneum COMPARISON: CT of the chest from 08/22/2019 and PA and lateral views of the chest from 08/22/2019. EXAM PARAMETERS: NUMBER OF VIEWS: Two views. TECHNIQUE: PA and lateral views of the chest were obtained.. RADIATION DOSE: NA LIMITATIONS: none FINDINGS: LUNGS AND PLEURA: The costophrenic sulci are blunted. The parenchymal opacities in the ri ght inferior hemithorax are unchanged. There is no pneumothorax. MEDIASTINUM AND HILAR STRUCTURES: No mediastinal or hilar contour abnormality. HEART AND VASCULAR STRUCTURES: The cardiac silhouette and pulmonary vasculature are within normal stock its. BONES: No acute findings. HARDWARE: None in the chest. OTHER: Round peripherally calcified mass in the spleen. IMPRESSION: Unchanged radiographic appearance of the chest. TECHNICAL DOCUMENTATION: JOB ID: [id number] 2010 [employer]- All Rights Reserved Reading location - IP/workstation name: [email or web address]
[2019-08-25 14:13] LABS: NT PRO BNP 150 pg/mL (<125); TROPONIN I < 0.012 ng/mL
[2019-08-25] MEDS ORDERED: CEFTRIAXONE 1 GM/D5W RTU 1 GM/50 ML RTUPB IV ONE (14:24)
[2019-08-25] MEDS ORDERED: NORMAL SALINE 1000 ML 1,000 ML IV ONE (14:24)
[2019-08-25] MEDS ORDERED: IPRATROPIUM/ALBUTEROL 0.5-2.5 MG/3 ML AMPUL NEB ONE (14:39)
[2019-08-25 15:30] LABS: VENOUS BLOOD BASE EXCESS -0.9 mmol/L; VENOUS BLOOD HCO3 24.7 mmol/L (20-32); VENOUS BLOOD PCO2 44.6 mmHg (35-63); VENOUS BLOOD PH 7.36 (7.30-7.42)
--- NOTE | 2019-08-25 16:54 | PDOC H&P ---
History of Present Illness Admission Date/PCP: 08/25/19 16:02 Patient complains of: cough, SOB History of Present Illness: YINA MCLAIN is a 34 year old male with no significant past medical history aside from cigarette smoking who is presenting with cough, shortness of breath and pleuritic chest pain. Patient reports that this all started more than 2 weeks ago and started having flulike symptoms including cold, cough, nausea and vomiting. He says he was having poor appetite and was feeling very weak. 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 He says he likely passed out and hit a lamp or a table next to his bed. He says he apparently was passed out for almost 2 days. His fiance was unable to hear anything from him hence she called 911 and patient was brought in to [facility] in [place]. There, he was diagnosed with possible pneumonia. He said he was tested for influenza but could not recall if he tested positive or negative for it. He was prescribed azithromycin. He says he completed antibiotics but did not really felel significantly better. He presented to our ER 2 days ago with increasing cough, chest pain and shortness of breath. He had a CTA of the chest which ruled out a PE but showed an extensive right lower lobe pneumonia. He was prescribed levofloxacin. Patient says that he took 2 doses so far and did not feel any relief. He said he had increasing pleuritic right-sided chest pain and shortness of breath. He says he has not been coughing a lot because of the pleuritic pain. In the ER, he was noted to be hypoxic at 87% on room air. Chest x-ray does not show any improvement from previous imaging. He admits to previous recreational drug use particularly IV heroin. He reports that his last use was in March 2019 after which he voluntarily went to rehab for treatment and since then reports he has not had any drug use. Past Surgical History Past Surgical History: Reports: Orthopedic Surgery - rt knee, rt foot Social History Smoking Status: Current Every Day Smoker Family History Family History: Malignancy - Strong history of cancer in aunts. Parental Family History Reviewed: Yes - No premature CAD Children Family History Reviewed: No Sibling(s) Family History Reviewed.: No Medication/Allergy Allergies/Adverse Reactions: No Known Allergies Allergy (Verified 10/03/18 14:07) Review of Systems All systems: reviewed and no additional remarkable complaints except as stated - As mentioned in HPI Physical Exam Vital Signs: Temp Pulse Resp BP Pulse Ox 99.2 F 100 31 H 102/68 96 08/25/19 14:09 08/25/19 11:14 08/25/19 15:00 08/25/19 11:14 08/25/19 15:00 Intake & Output 08/24/19 08/25/19 08/26/19 06:59 06:59 06:59 Weight 250 lb General appearance: PRESENT: no acute distress, well-developed, well-nourished Head exam: PRESENT: atraumatic, normocephalic Eye exam: PRESENT: conjunctiva pink, EOMI, PERRLA. ABSENT: scleral icterus Ear exam: PRESENT: normal external ear exam Mouth exam: PRESENT: moist, tongue midline Neck exam: ABSENT: carotid bruit, JVD, lymphadenopathy, thyromegaly Respiratory exam: PRESENT: rales, rhonchi. ABSENT: wheezes Cardiovascular exam: PRESENT: RRR. ABSENT: diastolic murmur, rubs, systolic murmur Pulses: PRESENT: normal dorsalis pedis pul GI/Abdominal exam: PRESENT: normal bowel sounds, soft. ABSENT: distended, guarding, mass, organolmegaly, rebound, tenderness Rectal exam: PRESENT: deferred Extremities exam: PRESENT: full ROM. ABSENT: calf tenderness, clubbing, pedal edema Neurological exam: PRESENT: alert, awake, oriented to person, oriented to place, oriented to time, oriented to situation, CN II-XII grossly intact. ABSENT: motor sensory deficit Results Laboratory Results: 08/25/19 12:01 08/25/19 12:01 08/25/19 08/25/19 08/25/19 12:01 12:01 12:01 WBC 16.1 H RBC 4.42 Hgb 13.8 Hct 38.6 MCV 87 MCH 31.2 MCHC 35.7 RDW 12.9 Plt Count 347 Seg Neutrophils % 84.7 H VBG pH VBG pCO2 VBG HCO3 VBG Base Excess Sodium 136.3 L Potassium 4.3 Chloride 103 Carbon Dioxide 28 Anion Gap 5 BUN 16 Creatinine 0.67 Est GFR ( Amer) > 60 Glucose 97 Lactic Acid Calcium 9.3 Total Bilirubin 0.6 AST 23 Alkaline Phosphatase 85 Total Protein 6.5 Albumin 3.7 Lipase 23.4 Urine Color YUE Urine Appearance SLIGHTLY-CLOUDY Urine pH 5.0 Ur Specific [place] 1.035 Urine Protein 30 H Urine Glucose (UA) NEGATIVE Urine Ketones NEGATIVE Urine Blood NEGATIVE Urine RBC (Auto) 1 08/25/19 08/25/19 15:10 15:10 WBC RBC Hgb Hct MCV MCH MCHC RDW Plt Count Seg Neutrophils % VBG pH 7.36 VBG pCO2 44.6 VBG HCO3 24.7 VBG Base Excess -0.9 Sodium Potassium Chloride Carbon Dioxide Anion Gap BUN Creatinine Est GFR ( Amer) Glucose Lactic Acid 1.4 Calcium Total Bilirubin AST Alkaline Phosphatase Total Protein Albumin Lipase Urine Color Urine Appearance Urine pH Ur Specific [place] Urine Protein Urine Glucose (UA) Urine Ketones Urine Blood Urine RBC (Auto) 08/25/19 12:01 Troponin I < 0.012 NT-Pro-B Natriuret Pep 150 H Impressions: Chest X-Ray 08/25/19 11:36 IMPRESSION: Unchanged radiographic appearance of the chest. Assessment and Plan - Diagnosis (1) Aspiration pneumonia Is this a current diagnosis for this admission?: Yes Plan: Suspect that his right lower lobe pneumonia is aspiration in nature given recent history of having passed out for 2 days. Is failed outpatient azithromycin and levofloxacin. Will start patient on IV Zosyn. Will order for aggressive pulmonary toilet including scheduled breathing treatments, CPT and Mucomyst treatments. We will also order for sputum culture. (2) Acute respiratory failure with hypoxia Is this a current diagnosis for this admission?: Yes Plan: Secondary to likely aspiration pneumonia. (3) Tobacco abuse Is this a current diagnosis for this admission?: Yes Plan: Counseled on smoking cessation. Will order for nicotine patch. (4) Splenic mass Is this a current diagnosis for this admission?: Yes Plan: Recent CT showed an incidental finding of calcified splenic cyst. Denies abdominal pain. No abdominal tenderness on examination. - Time Time Spent with patient: 25-34 minutes
--- NOTE | 2019-08-25 16:56 | ADVANCED CARE ---
- Diagnosis (1) Acute respiratory failure with hypoxia Diagnosis Current: Yes (2) Aspiration pneumonia Diagnosis Current: Yes (3) Tobacco abuse Diagnosis Current: Yes Resuscitation Status: Full Code Discussion: Discussed with patient with halie at the bedside. He says that he is a full code and prefers to receive chest compressions, defibrillation or mechanical ventilation if the need arises. He does state that he does not want to be on prolonged ventilation. He says that his Amilcar vasques is his surrogate medical decision maker.
[2019-08-25] MEDS ORDERED: ONDANSETRON HCL INJ/PF 4 MG/2 ML SDV IV PRN (17:32)
[2019-08-25] MEDS: NICOTINE 14 MG/24 HR PATCH.TD24 TD SCH (18:25)
[2019-08-25] MEDS: PIPERACILLIN SODIUM/TAZOBACTAM 3.375 GM in NORMAL SALINE 100 ML IV SCH (18:25)
[2019-08-25] MEDS: ACETAMINOPHEN 325 MG TABLET PO PRN (18:59)
[2019-08-25] MEDS: KETOROLAC TROMETHAMINE INJ/PF 30 MG/1 ML SDV IV PRN (18:59)
[2019-08-25] MEDS: ACETYLCYSTEINE 20% SOLN 800 MG/4 ML VIAL.NEB NEB SCH (19:12)
[2019-08-25] MEDS: ALBUTEROL SULFATE 0.083% NEB 2.5 MG/3 ML AMPUL NEB SCH (19:12)
--- NOTE | 2019-08-25 20:06 | EKG REPORT ---
SEVERITY:- NORMAL ECG - SINUS RHYTHM : Confirmed by: Rohith Leal MD 25-Aug-2019 20:05:37
[2019-08-25] MEDS: MORPHINE SULFATE 10 MG/ML INJ IV PRN (22:28)
[2019-08-25] MEDS: HEPARIN SOD (PORCINE) 5,000 UNIT/ML 1 ML VIAL SUBCUT SCH (22:41)
[2019-08-25 23:25] LABS: URINE AMPHETAMINES SCREEN NEGATIVE; URINE BARBITURATES SCREEN NEGATIVE; URINE BENZODIAZEPINES SCREEN NEGATIVE; URINE COCAINE SCREEN NEGATIVE; URINE MARIJUANA (THC) SCREEN NEGATIVE; URINE METHADONE SCREEN NEGATIVE; URINE PHENCYCLIDINE SCREEN NEGATIVE
[2019-08-26] MEDS: ZOLPIDEM TARTRATE 5 MG TABLET PO PRN ×2 (00:07→23:40)
[2019-08-26] MEDS: PIPERACILLIN SODIUM/TAZOBACTAM 3.375 GM in NORMAL SALINE 100 ML IV SCH ×5 (00:08→23:40)
[2019-08-26] MEDS: KETOROLAC TROMETHAMINE INJ/PF 30 MG/1 ML SDV IV PRN ×4 (01:47→23:38)
[2019-08-26] MEDS: ACETAMINOPHEN 325 MG TABLET PO PRN (01:47)
[2019-08-26] MEDS: ALBUTEROL SULFATE 0.083% NEB 2.5 MG/3 ML AMPUL NEB SCH ×4 (01:59→19:35)
[2019-08-26] MEDS: MORPHINE SULFATE 10 MG/ML INJ IV PRN ×4 (07:01→22:32)
[2019-08-26] MEDS: HEPARIN SOD (PORCINE) 5,000 UNIT/ML 1 ML VIAL SUBCUT SCH ×3 (07:01→21:39)
[2019-08-26] MEDS: ACETYLCYSTEINE 20% SOLN 800 MG/4 ML VIAL.NEB NEB SCH ×2 (07:57→19:35)
[2019-08-26] MEDS: NICOTINE 14 MG/24 HR PATCH.TD24 TD SCH (10:16)
--- NOTE | 2019-08-26 11:21 | PDOC PROGRESS REPORT ---
Subjective Progress Note for:: 08/26/19 Subjective:: This is a 34-year-old male who was admitted for an extensive right lower lobe pneumonia likely aspiration in nature. No acute event overnight but upon encounter this morning, patient still complains of pleuritic chest pain. He still has shortness of breath. He has not been coughing out a lot due to the pleuritic chest pain. He has failed outpatient antibiotic treatment therapy twice and will likely need at least 5 days of IV antibiotic therapy. Reason For Visit: ACUTE HYPOXIC RESPIRATORY FAILURE, ASPIRATION Physical Exam Vital Signs: Temp Pulse Resp BP Pulse Ox 98.7 F 86 17 137/65 H 93 08/26/19 08:00 08/26/19 08:00 08/26/19 08:00 08/26/19 08:00 08/26/19 08:00 Intake & Output 08/25/19 08/26/19 08/27/19 06:59 06:59 06:59 Intake Total 1300 100 Balance 1300 100 Weight 250 lb General appearance: PRESENT: no acute distress, well-developed, well-nourished Head exam: PRESENT: atraumatic, normocephalic Eye exam: PRESENT: conjunctiva pink, EOMI, PERRLA. ABSENT: scleral icterus Ear exam: PRESENT: normal external ear exam Mouth exam: PRESENT: moist, tongue midline Neck exam: ABSENT: carotid bruit, JVD, lymphadenopathy, thyromegaly Respiratory exam: PRESENT: rales, rhonchi. ABSENT: wheezes Cardiovascular exam: PRESENT: RRR. ABSENT: diastolic murmur, rubs, systolic murmur Pulses: PRESENT: normal dorsalis pedis pul GI/Abdominal exam: PRESENT: normal bowel sounds, soft. ABSENT: distended, guarding, mass, organolmegaly, rebound, tenderness Rectal exam: PRESENT: deferred Extremities exam: PRESENT: full ROM. ABSENT: calf tenderness, clubbing, pedal edema Neurological exam: PRESENT: alert, awake, oriented to person, oriented to place, oriented to time, oriented to situation, CN II-XII grossly intact. ABSENT: motor sensory deficit Results Laboratory Results: 08/25/19 12:01 08/25/19 12:01 08/25/19 08/25/19 08/25/19 12:01 12: 12:01 WBC 16.1 H RBC 4.42 Hgb 13.8 Hct 38.6 MCV 87 MCH 31.2 MCHC 35.7 RDW 12.9 Plt Count 347 Seg Neutrophils % 84.7 H VBG pH VBG pCO2 VBG HCO3 VBG Base Excess Sodium 136.3 L Potassium 4.3 Chloride 103 Carbon Dioxide 28 Anion Gap 5 BUN 16 Creatinine 0.67 Est GFR ( Amer) > 60 Glucose 97 Lactic Acid Calcium 9.3 Total Bilirubin 0.6 AST 23 Alkaline Phosphatase 85 Total Protein 6.5 Albumin 3.7 Lipase 23.4 Urine Color YUE Urine Appearance SLIGHTLY-CLOUDY Urine pH 5.0 Ur Specific [place] 1.035 Urine Protein 30 H Urine Glucose (UA) NEGATIVE Urine Ketones NEGATIVE Urine Blood NEGATIVE Urine RBC (Auto) 1 08/25/19 08/25/19 15:10 15:10 WBC RBC Hgb Hct MCV MCH MCHC RDW Plt Count Seg Neutrophils % VBG pH 7.36 VBG pCO2 44.6 VBG HCO3 24.7 VBG Base Excess -0.9 Sodium Potassium Chloride Carbon Dioxide Anion Gap BUN Creatinine Est GFR ( Amer) Glucose Lactic Acid 1.4 Calcium Total Bilirubin AST Alkaline Phosphatase Total Protein Albumin Lipase Urine Color Urine Appearance Urine pH Ur Specific [place] Urine Protein Urine Glucose (UA) Urine Ketones Urine Blood Urine RBC (Auto) 08/25/19 12:01 Troponin I < 0.012 NT-Pro-B Natriuret Pep 150 H Impressions: Chest X-Ray 08/25/19 11:36 IMPRESSION: Unchanged radiographic appearance of the chest. Assessment and Plan - Diagnosis (1) Acute respiratory failure with hypoxia Is this a current diagnosis for this admission?: Yes Plan: Secondary to likely aspiration pneumonia. On nasal cannula. (2) Aspiration pneumonia Is this a current diagnosis for this admission?: Yes Plan: 08/25: Suspect that his right lower lobe pneumonia is aspiration in nature given recent history of having passed out for 2 days. He failed outpatient azithromyc in and levofloxacin. Will start patient on IV Zosyn. Will order for aggressive pulmonary toilet including scheduled breathing treatments, CPT and Mucomyst treatments. We will also order for sputum culture. 08/26: He has failed outpatient antibiotic treatment therapy twice and will likely need at least 5 days of IV antibiotic therapy. (3) Tobacco abuse Is this a current diagnosis for this admission?: Yes Plan: Counseled on smoking cessation. On nicotine patch. - Time Time Spent with patient: 25-34 minutes
[2019-08-26] MEDS: LIDOCAINE 5% (700 MG) TRANSDERMAL ADH..PATCH TP SCH (12:11)
[2019-08-27] MEDS: ALBUTEROL SULFATE 0.083% NEB 2.5 MG/3 ML AMPUL NEB SCH ×4 (02:01→19:37)
[2019-08-27] MEDS: MORPHINE SULFATE 10 MG/ML INJ IV PRN ×5 (02:37→22:36)
[2019-08-27] MEDS: HEPARIN SOD (PORCINE) 5,000 UNIT/ML 1 ML VIAL SUBCUT SCH ×3 (05:02→23:50)
[2019-08-27 05:10] LABS: ABSOLUTE BASOPHILS # (AUTO) 0.1 10^3/uL (0.0-0.2); ABSOLUTE EOSINOPHILS # (AUTO) 0.2 10^3/uL (0.0-0.6); ABSOLUTE LYMPHOCYTES (AUTO) 1.8 10^3/uL (0.5-4.7); ABSOLUTE MONOCYTES (AUTO) 1.5 10^3/uL (0.1-1.4); ABSOLUTE NEUT (AUTO) 11.4 10^3/uL (1.7-8.2); BASOPHILS % (AUTO) 0.4 % (0-2); EOSINOPHILS % (AUTO) 1.4 % (0-6); HEMATOCRIT 35.5 % (37.9-51.0); HEMOGLOBIN 12.6 g/dL (13.5-17.0); LYMPHOCYTES % (AUTO) 11.7 % (13-45); MEAN CORPUSCULAR HEMOGLOBIN 30.8 pg (27.0-33.4); MEAN CORPUSCULAR HGB CONC 35.4 g/dL (32.0-36.0); MEAN CORPUSCULAR VOLUME 87 fl (80-97); MONOCYTES % (AUTO) 10.3 % (3-13); PLATELET COUNT 291 10^3/uL (150-450); RED BLOOD COUNT 4.07 10^6/uL (4.35-5.55); RED CELL DISTRIBUTION WIDTH 13.1 % (11.5-14.0); SEGMENTED NEUTROPHILS % (AUTO) 76.2 % (42-78); TOTAL CELLS COUNTED % (AUTO) 100 %
[2019-08-27] MEDS: PIPERACILLIN SODIUM/TAZOBACTAM 3.375 GM in NORMAL SALINE 100 ML IV SCH ×4 (05:12→23:44)
[2019-08-27 05:35] LABS: ANION GAP 9 (5-19); BLOOD UREA NITROGEN 11 mg/dL (7-20); CARBON DIOXIDE 27 mmol/L (22-30); CHLORIDE 102 mmol/L (98-107); GLUCOSE 110 mg/dL (75-110); POTASSIUM 4.1 mmol/L (3.6-5.0)
[2019-08-27] MEDS: ACETYLCYSTEINE 20% SOLN 800 MG/4 ML VIAL.NEB NEB SCH ×2 (07:39→19:36)
[2019-08-27] MEDS: LIDOCAINE 5% (700 MG) TRANSDERMAL ADH..PATCH TP SCH (10:38)
[2019-08-27] MEDS: NICOTINE 14 MG/24 HR PATCH.TD24 TD SCH (10:38)
--- NOTE | 2019-08-27 13:09 | PDOC PROGRESS REPORT ---
Subjective Progress Note for:: 08/27/19 Subjective:: This is a 34-year-old male who was admitted for an extensive right lower lobe pneumonia likely aspiration in nature. 08/26: No acute event overnight but upon encounter this morning, patient still complains of pleuritic chest pain. He still has shortness of breath. He has not been coughing out a lot due to the pleuritic chest pain. He has failed outpatient antibiotic treatment therapy twice and will likely need at least 5 days of IV antibiotic therapy. 08/27: Good event overnight. This morning, patient still reports of pleuritic chest pain but reports that this is slightly improved compared to yesterday. He says that he is now having productive cough and has been coughing up grayish sputum. He says his shortness of breath is also slightly improved compared to yesterday. Patient's fiance requested that he be not discharged on opiates due to prior history of opiate dependency and that he has successfully got over this after going to rehab. Blood culture is growing gram negative rods 1/2 bottles. Reason For Visit: ACUTE HYPOXIC RESPIRATORY FAILURE, ASPIRATION Physical Exam Vital Signs: Temp Pulse Resp BP Pulse Ox 99.6 F 101 H 19 132/71 H 93 08/27/19 08:00 08/27/19 08:00 08/27/19 08:00 08/27/19 08:00 08/27/19 08:00 Intake & Output 08/26/19 08/27/19 08/28/19 06:59 06:59 06:59 Intake Total 1300 2470 Balance 1300 2470 Weight 250 lb 273 lb 2.444 oz General appearance: PRESENT: no acute distress, well-developed, well-nourished Head exam: PRESENT: atraumatic, normocephalic Eye exam: PRESENT: conjunctiva pink, EOMI, PERRLA. ABSENT: scleral icterus Ear exam: PRESENT: normal external ear exam Mouth exam: PRESENT: moist, tongue midline Neck exam: ABSENT: carotid bruit, JVD, lymphadenopathy, thyromegaly Respiratory exam: PRESENT: decreased breath sounds, rhonchi. ABSENT: rales, wheezes Pulses: PRESENT: normal dorsalis pedis pul GI/Abdominal exam: PRESENT: normal bowel sounds, soft. ABSENT: distended, guarding, mass, organolmegaly, rebound, tenderness Rectal exam: PRESENT: deferred Neurological exam: PRESENT: alert, awake, oriented to person, oriented to place, oriented to time, oriented to situation, CN II-XII grossly intact. ABSENT: motor sensory deficit Results Laboratory Results: 08/27/19 04:37 08/27/19 04:37 08/27/19 08/27/19 04:37 04:37 WBC 15.0 H RBC 4.07 L Hgb 12.6 L Hct 35.5 L MCV 87 MCH 30.8 MCHC 35.4 RDW 13.1 Plt Count 291 Seg Neutrophils % 76.2 Sodium 138.1 Potassium 4.1 Chloride 102 Carbon Dioxide 27 Anion Gap 9 BUN 11 Creatinine 0.64 Est GFR ( Amer) > 60 Glucose 110 Calcium 9.0 08/26/19 13:30 Sputum Gram Stain - Final 08/26/19 13:30 Sputum Sputum Culture - Final 08/25/19 12:01 Troponin I < 0.012 NT-Pro-B Natriuret Pep 150 H Impressions: Chest X-Ray 08/25/19 11:36 IMPRESSION: Unchanged radiographic appearance of the chest. Assessment and Plan - Diagnosis (1) Acute respiratory failure with hypoxia Is this a current diagnosis for this admission?: Yes Plan: Secondary to likely aspiration pneumonia. On nasal cannula. (2) Aspiration pneumonia Is this a current diagnosis for this admission?: Yes Plan: 08/25: Suspect that his right lower lobe pneumonia is aspiration in nature given recent history of having passed out for 2 days. He failed outpatient azithromycin and levofloxacin. Will start patient on IV Zosyn. Will order for aggressive pulmonary toilet including scheduled breathing treatments, CPT and Mucomyst treatments. We will also order for sputum culture. 08/26: He has failed outpatient antibiotic treatment therapy twice and will likely need at least 5 days of IV antibiotic therapy. 08/27: Continue Zosyn. Sputum culture pending. (3) Tobacco abuse Is this a current diagnosis for this admission?: Yes Plan: Counseled on smoking cessation. On nicotine patch. - Time Time Spent with patient: 25-34 minutes
[2019-08-27] MEDS: TRAMADOL HCL 50 MG TABLET PO PRN (17:45)
[2019-08-27] MEDS: KETOROLAC TROMETHAMINE INJ/PF 30 MG/1 ML SDV IV PRN (20:20)
[2019-08-28] MEDS: ZOLPIDEM TARTRATE 5 MG TABLET PO PRN ×2 (00:42→23:07)
[2019-08-28] MEDS: ALBUTEROL SULFATE 0.083% NEB 2.5 MG/3 ML AMPUL NEB SCH ×4 (02:14→20:13)
[2019-08-28] MEDS: HEPARIN SOD (PORCINE) 5,000 UNIT/ML 1 ML VIAL SUBCUT SCH ×3 (05:16→21:08)
[2019-08-28] MEDS: PIPERACILLIN SODIUM/TAZOBACTAM 3.375 GM in NORMAL SALINE 100 ML IV SCH ×4 (05:19→23:07)
[2019-08-28] MEDS: TRAMADOL HCL 50 MG TABLET PO PRN ×2 (05:23→14:55)
[2019-08-28] MEDS: MORPHINE SULFATE 10 MG/ML INJ IV PRN ×4 (06:31→21:44)
[2019-08-28] MEDS: ACETYLCYSTEINE 20% SOLN 800 MG/4 ML VIAL.NEB NEB SCH ×2 (07:44→20:13)
[2019-08-28] MEDS: LIDOCAINE 5% (700 MG) TRANSDERMAL ADH..PATCH TP SCH (09:37)
[2019-08-28] MEDS: NICOTINE 14 MG/24 HR PATCH.TD24 TD SCH (09:37)
--- NOTE | 2019-08-28 14:35 | PDOC PROGRESS REPORT ---
Subjective Progress Note for:: 08/28/19 Subjective:: This is a 34-year-old male who was admitted for an extensive right lower lobe pneumonia likely aspiration in nature. 08/26: No acute event overnight but upon encounter this morning, patient still complains of pleuritic chest pain. He still has shortness of breath. He has not been coughing out a lot due to the pleuritic chest pain. He has failed outpatient antibiotic treatment therapy twice and will likely need at least 5 days of IV antibiotic therapy. 08/27: No acute event overnight. This morning, patient still reports of pleuritic chest pain but reports that this is slightly improved compared to yesterday. He says that he is now having productive cough and has been coughing up grayish sputum. He says his shortness of breath is also slightly improved compared to yesterday. Patient's fiance requested that he be not discharged on opiates due to prior history of opiate dependency and that he has successfully got over this after going to rehab. Blood culture is growing gram negative rods 1/2 bottles. 08/28: No acute issues. On encounter this morning, patient reports that he continues to have increasing productive sputum. Still has pleuritic chest pain but this continues to improve. He says his shortness of breath also continue to improve. Blood cultures grew K. pneumoniae 1/2 bottles. Reason For Visit: ACUTE HYPOXIC RESPIRATORY FAILURE, ASPIRATION Physical Exam Vital Signs: Temp Pulse Resp BP Pulse Ox 98.5 F 108 H 40 H 128/70 H 92 08/28/19 08:00 08/28/19 13:50 08/28/19 13:50 08/28/19 04:00 08/28/19 13:50 Intake & Output 08/27/19 08/28/19 08/29/19 06:59 06:59 06:59 Intake Total 2470 2580 Balance 2470 2580 Weight 273 lb 2.444 oz 276 lb 7.355 oz General appearance: PRESENT: no acute distress, well-developed, well-nourished Head exam: PRESENT: atraumatic, normocephalic Eye exam: PRESENT: conjunctiva pink, EOMI, PERRLA. ABSENT: scleral icterus Ear exam: PRESENT: normal external ear exam Mouth exam: PRESENT: moist, tongue midline Neck exam: ABSENT: carotid bruit, JVD, lymphadenopathy, thyromegaly Respiratory exam: PRESENT: decreased breath sounds, rales. ABSENT: rhonchi, wheezes Cardiovascular exam: PRESENT: RRR. ABSENT: diastolic murmur, rubs, systolic murmur Pulses: PRESENT: normal dorsalis pedis pul GI/Abdominal exam: PRESENT: normal bowel sounds, soft. ABSENT: distended, guarding, mass, organolmegaly, rebound, tenderness Rectal exam: PRESENT: deferred Extremities exam: PRESENT: full ROM. ABSENT: calf tenderness, clubbing, pedal edema Neurological exam: PRESENT: alert, awake, oriented to person, oriented to place, oriented to time, oriented to situation, CN II-XII grossly intact. ABSENT: motor sensory deficit Results Laboratory Results: 08/27/19 04:37 08/27/19 04:37 08/25/19 12:01 Blood Blood Culture (PCR) - Final Klebsiella Pneumoniae 08/25/19 12:01 Troponin I < 0.012 NT-Pro-B Natriuret Pep 150 H Impressions: Chest X-Ray 08/25/19 11:36 IMPRESSION: Unchanged radiographic appearance of the chest. Assessment and Plan - Diagnosis (1) Acute respiratory failure with hypoxia Is this a current diagnosis for this admission?: Yes Plan: Secondary to likely aspiration pneumonia. On nasal cannula. (2) Aspiration pneumonia Is this a current diagnosis for this admission?: Yes Plan: 08/25: Suspect that his right lower lobe pneumonia is aspiration in nature given recent history of having passed out for 2 days. He failed outpatient azithromycin and levofloxacin. Will start patient on IV Zosyn. Will order for aggressive pulmonary toilet including scheduled breathing treatments, CPT and Mucomyst treatments. We will also order for sputum culture. 08/26: He has failed outpatient antibiotic treatment therapy twice and will likely need at least 5 days of IV antibiotic therapy. 08/28: Continue Zosyn. First sputum culture sample unacceptable. Will send for another one. (3) Tobacco abuse Is this a current diagnosis for this admission?: Yes Plan: Counseled on smoking cessation. On nicotine patch. (4) Bacteremia due to Klebsiella pneumoniae Is this a current diagnosis for this admission?: Yes - Time Time Spent with patient: 25-34 minutes
[2019-08-28] MEDS: KETOROLAC TROMETHAMINE INJ/PF 30 MG/1 ML SDV IV PRN (21:06)
[2019-08-28] MEDS: PHARMACY COMMUNICATION ORDER MC SCH (21:46)
[2019-08-29] MEDS: ALBUTEROL SULFATE 0.083% NEB 2.5 MG/3 ML AMPUL NEB SCH ×4 (02:53→20:37)
[2019-08-29] MEDS: MORPHINE SULFATE 10 MG/ML INJ IV PRN ×3 (03:40→19:49)
[2019-08-29] MEDS: HEPARIN SOD (PORCINE) 5,000 UNIT/ML 1 ML VIAL SUBCUT SCH ×3 (05:43→21:57)
[2019-08-29] MEDS: PIPERACILLIN SODIUM/TAZOBACTAM 3.375 GM in NORMAL SALINE 100 ML IV SCH ×4 (06:47→23:12)
[2019-08-29] MEDS: ACETYLCYSTEINE 20% SOLN 800 MG/4 ML VIAL.NEB NEB SCH ×2 (07:44→20:36)
[2019-08-29] MEDS: TRAMADOL HCL 50 MG TABLET PO PRN ×2 (08:52→17:15)
[2019-08-29] MEDS: NICOTINE 14 MG/24 HR PATCH.TD24 TD SCH (09:29)
[2019-08-29] MEDS: LIDOCAINE 5% (700 MG) TRANSDERMAL ADH..PATCH TP SCH (09:29)
--- NOTE | 2019-08-29 18:15 | PDOC PROGRESS REPORT ---
Subjective Progress Note for:: 08/29/19 Subjective:: No adverse events overnight. He was on oxygen when I came in the room. He does not use oxygen at home. We took him off the oxygen and he did fine. He got up and walked around the hallway. Given his history of IV drug use I have requested that the staff not allow him to leave the floor. He told the admitting physician that he has been off of drugs since March 2019 but his toxicological screen was positive for opiates on admission. Reason For Visit: ACUTE HYPOXIC RESPIRATORY FAILURE, ASPIRATION Physical Exam Vital Signs: Temp Pulse Resp BP Pulse Ox 99.8 F 95 18 127/64 H 92 08/29/19 12:00 08/29/19 13:26 08/29/19 13:26 08/29/19 12:00 08/29/19 13:26 Intake & Output 08/28/19 08/29/19 08/30/19 06:59 06:59 06:59 Intake Total 2580 3200 300 Balance 2580 3200 300 Weight 125.4 kg 117.3 kg General appearance: PRESENT: no acute distress, well-developed, well-nourished Respiratory exam: PRESENT: decreased breath sounds, rales. ABSENT: rhonchi, wheezes Cardiovascular exam: PRESENT: RRR. ABSENT: diastolic murmur, rubs, systolic murmur Pulses: PRESENT: normal dorsalis pedis pul GI/Abdominal exam: PRESENT: normal bowel sounds, soft. ABSENT: distended, guarding, mass, organolmegaly, rebound, tenderness Extremities exam: PRESENT: full ROM. ABSENT: calf tenderness, clubbing, pedal edema Neurological exam: PRESENT: alert, awake, oriented to person, oriented to place, oriented to time, oriented to situation Results Laboratory Results: 08/27/19 04:37 08/27/19 04:37 08/25/19 12:01 Blood Blood Culture (PCR) - Final Klebsiella Pneumoniae 08/25/19 12:01 Troponin I < 0.012 NT-Pro-B Natriuret Pep 150 H Impressions: Chest X-Ray 08/25/19 11:36 IMPRESSION: Unchanged radiographic appearance of the chest. Assessment and Plan - Diagnosis (1) Acute respiratory failure with hypoxia Is this a current diagnosis for this admission?: Yes (2) Aspiration pneumonia Is this a current diagnosis for this admission?: Yes (3) Bacteremia due to Klebsiella pneumoniae Is this a current diagnosis for this admission?: Yes (4) History of intravenous drug use in remission Is this a current diagnosis for this admission?: Yes - Plan Summary Summary: I requested that we leave his oxygen off because I do not think he needs it. I saw him ambulate in the hallway and he was not short of breath at all. His lungs were clear. The lab called and said that they were not able to grow and culture the Klebsiella that was detected via PCR. I will probably treat him with an oral third-generation cephalosporin for a total of 10 days and then have him get his blood cultures repeated afterwards. I have requested that the staff not allow him to leave the floor as I suspect there is a possibility he may still be using drugs. - Time Time Spent with patient: 15-24 minutes
--- NOTE | 2019-08-29 19:23 | Progress Note ---
Provider Note Provider Note: ID telemedicine/remote consultation note Asked to review patient's chart by Pharmacy. Pt not seen or examined. 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 He presented to the ED at [facility] overnight between 08/22 and 08/23/19 with c/o pleuritic R sided chest pain. He admitted to fever and cough, onset approximately 2 weeks ago when he had flulike symptoms including nausea, vomiting, poor appetite, and generalized weakness. Per H&P, he reported he "likely passed out and hit a lamp or a table next to his bed" and was brought to medical care when he was in [place] where he was diagnosed with possible pn eumonia and prescribed azithromycin. In the [facility] ED he had a CTA that ruled out PE but showed an area of right lower lobe consolidation. He was prescribed levofloxacin but returned on 08/25/19 because he did not feel much better. On return to the ED, he was noted to be hypoxic at 87% on room air. Lung sounds included rhonchi and rales, no cardiac murmurs. CXR appeared similar to previous. Blood cultures drawn on presentation were reported as having Klebsiella pneumoniae identified by PCR in one set, but this was not recoverable from traditional culture methods. The other set of blood cx on 08/25 is negatie. Sputum sample from 08/26 was not sufficient (saliva submitted). Repeat sputum culture was sent on 08/28. Repeat blood cx were submitted on 08/28 as well. Per most recent notes, pt was able to ambulate around the hallway today off of oxygen. Impression Klebsiella pneumoniae bacteremia and RLL pneumonia - Pt has risk factors for aspiration pneumonia (reported a preceding period of loss of consciousness 2 weeks ago, UDS positive for opiates), and Klebsiella pneumoniae bacteremia appears to be most likely secondary to the pneumonia. Although pt has h/o IVDU and relapse rate after opioid detoxification is high, Enterobacteriaceae are quite uncommon as causes of endocarditis, he has no murmur, no sustained bacteremia, and the patient's chest imaging findings are not c/w septic pulmonary emboli. - He is reported to be clinically improving, no longer hypoxic, able to get OOB and ambulate. He has not had a fever since 08/27 on Zosyn empirically. Recommendations - Community acquired bacterial pneumonia typically requires 5-7 days of antibiotic therapy; there is no evidence on imaging to suggest lung abscess or empyema or necrotizing process that might benefit from longer treatment. The optimal duration of treatment for most GNR bacteremia is likely in the 7-10 day range based on retrospective studies and an RCT. - Generally, oral fluoroquinolones or Bactrim are the preferred oral agents for step-down treatment of GNR bacteremia based on the higher blood levels that can be achieved. Beta-lactams are less desirable due to lower oral bioavailability. However, susceptibilities for the Klebsiella isolate are lacking since the Micro lab could not recover it from the blood cultures, and pt did not feel like he was improving with a fluoroquinolone that he was prescribed empirically. It would be reasonable to try a third generation cephalosporin instead to complete treatment in light of these factors and the patient's clinical improvement. - Continuing Zosyn for now or de-escalating to Rocephin 2 grams IV daily is acceptable in anticipation of patient being discharged home on an oral third generation cephalosporin to complete the remainder of 10 days of treatment. Dao Lam MD [facility] Infectious Diseases pager [phone]
[2019-08-29] MEDS: ZOLPIDEM TARTRATE 5 MG TABLET PO PRN (21:59)
[2019-08-29] MEDS: PHARMACY COMMUNICATION ORDER MC SCH (23:36)
[2019-08-30] MEDS: ALBUTEROL SULFATE 0.083% NEB 2.5 MG/3 ML AMPUL NEB SCH ×2 (01:59→07:38)
[2019-08-30] MEDS: PIPERACILLIN SODIUM/TAZOBACTAM 3.375 GM in NORMAL SALINE 100 ML IV SCH ×2 (05:10→12:14)
[2019-08-30] MEDS: MORPHINE SULFATE 10 MG/ML INJ IV PRN (05:16)
[2019-08-30] MEDS: HEPARIN SOD (PORCINE) 5,000 UNIT/ML 1 ML VIAL SUBCUT SCH (05:18)
[2019-08-30] MEDS: ACETYLCYSTEINE 20% SOLN 800 MG/4 ML VIAL.NEB NEB SCH (07:38)
[2019-08-30] MEDS: NICOTINE 14 MG/24 HR PATCH.TD24 TD SCH (09:03)
[2019-08-30] MEDS: LIDOCAINE 5% (700 MG) TRANSDERMAL ADH..PATCH TP SCH (09:04)
[2019-08-30 09:21] VITALS: BP 128/72
--- NOTE | 2019-08-30 15:26 | PDOC DISCHARGE SUMMARY ---
Impression - Admit/DC Date/PCP Admission Date/Primary Care Provider: 08/25/19 16:02 Discharge Date: 08/30/19 - Discharge Diagnosis (1) Acute respiratory failure with hypoxia Is this a current diagnosis for this admission?: Yes (2) Aspiration pneumonia Is this a current diagnosis for this admission?: Yes (3) Bacteremia due to Klebsiella pneumoniae Is this a current diagnosis for this admission?: Yes (4) History of intravenous drug use in remission Is this a current diagnosis for this admission?: Yes - Assessment Summary: I requested that we leave his oxygen off because I do not think he needs it. I saw him ambulate in the hallway and he was not short of breath at all. His lungs were clear. The lab called and said that they were not able to grow and culture the Klebsiella that was detected via PCR. I will probably treat him with an oral third-generation cephalosporin for a total of 10 days and then have him get his blood cultures repeated afterwards. - Additional Information Resuscitation Status: Full Code Discharge Diet: Regular Discharge Activity: Activity As Tolerated, Walk Frequently [facility] - [facility]/19 3:00 pm (WITH CHEN HERNANDEZ) Prescriptions: Cefpodoxime Proxetil [Vantin 200 mg Tablet] 200 mg PO BID #10 tablet Home Medications: Naproxen Sodium [Aleve] 440 mg PO QAM 08/25/19 Cefpodoxime Proxetil [Vantin 200 mg Tablet] 200 mg PO BID #10 tablet 08/30/19 History of Present Illiness History of Present Illness: YINA MCLAIN is a 34 year old male with no significant past medical history aside from cigarette smoking who is presenting with cough, shortness of breath and pleuritic chest pain. Patient reports that this all started more than 2 weeks ago and started having flulike symptoms including cold, cough, nausea and vomiting. He says he was having poor appetite and was feeling very weak. 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 He says he likely passed out and hit a lamp or a table next to his bed. He says he apparently was passed out for almost 2 days. His fiance was unable to hear anything from him hence she called 911 and patient was brought in to [facility] in [place]. There, he was diagnosed with possible pneumonia. He said he was tested for influenza but could not recall if he tested positive or negative for it. He was prescribed azithromycin. He says he completed antibiotics but did not really f elel significantly better. He presented to our ER 2 days ago with increasing cough, chest pain and shortness of breath. He had a CTA of the chest which ruled out a PE but showed an extensive right lower lobe pneumonia. He was prescribed levofloxacin. Patient says that he took 2 doses so far and did not feel any relief. He said he had increasing pleuritic right-sided chest pain and shortness of breath. He says he has not been coughing a lot because of the pleuritic pain. In the ER, he was noted to be hypoxic at 87% on room air. Chest x-ray does not show any improvement from previous imaging. He admits to previous recreational drug use particularly IV heroin. He reports that his last use was in March 2019 after which he voluntarily went to rehab for treatment and since then reports he has not had any drug use. Hospital Course Hospital Course: He was placed empirically on Zosyn. Blood cultures showed a Klebsiella, but it grew so little that they could not get enough for susceptibility testing. There was some question of whether or not this was a true result. However we treated this was if it was a Klebsiella pneumonia. He is received least 3 days of antibiotics here and so we decided to treat for a total of 10 days. We chose Vantin, third-generation cephalosporin, for another weeks worth of treatment at home. He had oxygen on at one point but has been ambulating in the hallways without oxygen. He walked in the hallway earlier, at one point his SPO2 dropped down to 88 but he looked comfortable and when he stopped and took couple of big breaths it came up into the 90s. He walked back to his room without any trouble. He has a history of IV drug use, particularly heroin, and says he is not used any since March 2019, but his toxicological screen on admission was positive for opiates. He was complaining of some back pain but he seemed to have no trouble making transfers or ambulating. His labs and examination were reassuring he was discharged in stable condition. Physical Exam Vital Signs: Temp Pulse Resp BP Pulse Ox 98.7 F 104 H 21 H 128/72 H 92 08/30/19 12:15 08/30/19 12:15 08/30/19 12:15 08/30/19 12:15 08/30/19 12:15 Intake & Output 08/29/19 08/30/19 08/31/19 06:59 06:59 06:59 Intake Total 3200 3461 Balance 3200 3461 Weight 117.3 kg 117.3 kg General appearance: PRESENT: no acute distress, well-developed, well-nourished Respiratory exam: PRESENT: decreased breath sounds, rales. ABSENT: rhonchi, wheezes Cardiovascular exam: PRESENT: RRR. ABSENT: diastolic murmur, rubs, systolic murmur Pulses: PRESENT: normal dorsalis pedis pul GI/Abdominal exam: PRESENT: normal bowel sounds, soft. ABSENT: distended, guarding, mass, organolmegaly, rebound, tenderness Extremities exam: PRESENT: full ROM. ABSENT: calf tenderness, clubbing, pedal edema Neurological exam: PRESENT: alert, awake, oriented to person, oriented to place, oriented to time, oriented to situation Results Laboratory Results: WBC 15.0 10^3/uL (4.0-10.5) H 08/27/19 04:37 RBC 4.07 10^6/uL (4.35-5.55) L 08/27/19 04:37 Hgb 12.6 g/dL (13.5-17.0) L 08/27/19 04:37 Hct 35.5 % (37.9-51.0) L 08/27/19 04:37 MCV 87 fl (80-97) 08/27/19 04:37 MCH 30.8 pg (27.0-33.4) 08/27/19 04:37 MCHC 35.4 g/dL (32.0-36.0) 08/27/19 04:37 RDW 13.1 % (11.5-14.0) 08/27/19 04:37 Plt Count 291 10^3/uL (150-450) 08/27/19 04:37 Lymph % (Auto) 11.7 % (13-45) L 08/27/19 04:37 [place] % (Auto) 10.3 % (3-13) 08/27/19 04:37 Eos % (Auto) 1.4 % (0-6) 08/27/19 04:37 Baso % (Auto) 0.4 % (0-2) 08/27/19 04:37 Absolute Neuts (auto) 11.4 10^3/uL (1.7-8.2) H 08/27/19 04:37 Absolute Lymphs (auto) 1.8 10^3/uL (0.5-4.7) 08/27/19 04:37 Absolute Monos (auto) 1.5 10^3/uL (0.1-1.4) H 08/27/19 04:37 Absolute Eos (auto) 0.2 10^3/uL (0.0-0.6) 08/27/19 04:37 Absolute Basos (auto) 0.1 10^3/uL (0.0-0.2) 08/27/19 04:37 Seg Neutrophils % 76.2 % (42-78) 08/27/19 04:37 VBG pH 7.36 (7.30-7.42) 08/25/19 15:10 VBG pCO2 44.6 mmHg (35-63) 08/25/19 15:10 VBG HCO3 24.7 mmol/L (20-32) 08/25/19 15:10 VBG Base Excess -0.9 mmol/L 08/25/19 15:10 Sodium 138.1 mmol/L (137-145) 08/27/19 04:37 Potassium 4.1 mmol/L (3.6-5.0) 08/27/19 04:37 Chloride 102 mmol/L (98-107) 08/27/19 04:37 Carbon Dioxide 27 mmol/L (22-30) 08/27/19 04:37 Anion Gap 9 (5-19) 08/27/19 04:37 BUN 11 mg/dL (7-20) 08/27/19 04:37 Creatinine 0.64 mg/dL (0.52-1.25) 08/27/19 04:37 Est GFR ( Amer) > 60 (>60) 08/27/19 04:37 Est GFR (MDRD) Non-Af > 60 (>60) 08/27/19 04:37 Glucose 110 mg/dL (75-110) 08/27/19 04:37 Lactic Acid 1.4 mmol/L (0.7-2.1) 08/25/19 15:10 Calcium 9.0 mg/dL (8.4-10.2) 08/27/19 04:37 Total Bilirubin 0.6 mg/dL (0.2-1.3) 08/25/19 12:01 Direct Bilirubin 0.0 mg/dL (0.0-0.4) 08/25/19 12:01 Neonat Total Bilirubin Not Reportable 08/25/19 12:01 Neonat Direct Bilirubin Not Reportable 08/25/19 12:01 Neonat Indirect Bili Not Reportable 08/25/19 12:01 AST 23 U/L (17-59) 08/25/19 12:01 ALT 37 U/L (<50) 08/25/19 12:01 Alkaline Phosphatase 85 U/L (38-126) 08/25/19 12:01 Troponin I < 0.012 ng/mL 08/25/19 12:01 NT-Pro-B Natriuret Pep 150 pg/mL (<125) H 08/25/19 12:01 Total Protein 6.5 g/dL (6.3-8.2) 08/25/19 12:01 Albumin 3.7 g/dL (3.5-5.0) 08/25/19 12: Lipase 23.4 U/L (23-300) 08/25/19 12:01 Urine Color YUE 08/25/19 12: Urine Appearance SLIGHTLY-CLOUDY 08/25/19 12: Urine pH 5.0 (5.0-9.0) 08/25/19 12:01 Ur Specific [place] 1.035 08/25/19 12:01 Urine Protein 30 mg/dL (NEGATIVE) H 08/25/19 12:01 Urine Glucose (UA) NEGATIVE mg/dL (NEGATIVE) 08/25/19 12:01 Urine Ketones NEGATIVE mg/dL (NEGATIVE) 08/25/19 12: Urine Blood NEGATIVE (NEGATIVE) 08/25/19 12: Urine Nitrite (Reflex) NEGATIVE (NEGATIVE) 08/25/19 12: Urine Bilirubin SMALL (NEGATIVE) H 08/25/19 12:01 Urine Urobilinogen 2.0 mg/dL (<2.0) H 08/25/19 12:01 Leukocyte Esterase Rfl NEGATIVE (NEGATIVE) 08/25/19 12: Urine RBC (Auto) 1 /HPF 08/25/19 12:01 Urine WBC (Reflex) 2 /HPF 08/25/19 12:01 Urine Mucus (Auto) MANY /LPF 08/25/19 12:01 Urine Ascorbic Acid NEGATIVE (NEGATIVE) 08/25/19 12:01 Urine Opiates Screen UNCONFIRMED POSITIVE 08/25/19 19:44 Urine Methadone Screen NEGATIVE 08/25/19 19:44 Ur Barbiturates Screen NEGATIVE 08/25/19 19:44 Ur Phencyclidine Scrn NEGATIVE 08/25/19 19:44 Ur Amphetamines Screen NEGATIVE 08/25/19 19:44 U Benzodiazepines Scrn NEGATIVE 08/25/19 19:44 Urine Cocaine Screen NEGATIVE 08/25/19 19:44 U Marijuana (THC) Screen NEGATIVE 08/25/19 19:44 HIV 1&2 Antibody NEGATIVE (NEGATIVE) 08/25/19 12:01 08/25/19 12:01 Troponin I < 0.012 NT-Pro-B Natriuret Pep 150 H Impressions: Chest X-Ray 08/25/19 11:36 IMPRESSION: Unchanged radiographic appearance of the chest. Plan Time Spent: Greater than 30 Minutes Stroke Is this a Stroke Patient?: No Acute Heart Failure - Is this a Heart Failure Patient?: No
== END 2019-08-30 13:12 | disposition home or self-care (01) | DRG 177 ==
LOC: ER 11:10 → EH 16:02 → 5 18:07
PROVIDERS: ADMIT Internal Medicine; ATTEND Internal Medicine
DX: J69.0 Pneumonitis due to inhalation of food and vomit (principal); J96.01 Acute respiratory failure with hypoxia; R78.81 Bacteremia; D73.4 Cyst of spleen; B96.1 Klebsiella pneumoniae [K. pneumoniae] as the cause of diseases classified elsewhere; F19.11 Other psychoactive substance abuse, in remission; F17.210 Nicotine dependence, cigarettes, uncomplicated; R82.5 Elevated urine levels of drugs, medicaments and biological substances; Z71.6 Tobacco abuse counseling
CPT/HCPCS: 36415; 71046; 80048; 80053; 80307; 81001; 82803; 83605; 83690; 83880; 84484; 85025; 86701; 87040; 87070; 87077; 87150; 87205; 93005; 93010; 94640; 94667; 94668; 96361; 96374; 96375; 99285; J0696; J1644; J1885; J2270; J2405; J2543; J7030; J7050; J7620